=== PATIENT | male | born 1990 | race Caucasian/White ===

== ENCOUNTER 2017-07-05 20:54 | Emergency (ER) | payer BC, OTHER ==
[~2017-07-05] VITALS: Ht 180.3 cm; Wt 84.0 kg
[~2017-07-05 20:54] MED LIST: AFRI0.65; AMOX500C OR; CEPH500C PO; MEDR8TAB PO; METH16TA PO; MUCINEX PO; PAIN325T PO
[2017-07-05] MEDS ORDERED: NORCO, ANEXSIA 5/325MG TABLET (HYDROcodone/ACETAMINOPHEN) PO ONE (21:30)
[2017-07-05] MEDS ORDERED: NAPR500T PO (22:25)
[2017-07-05 22:36] VITALS: BP 139/84
--- NOTE | 2017-07-06 09:03 | REP ---
LEFT ANKLE, FOUR VIEWS: HISTORY: Trauma. There is no acute fracture or dislocation. The joint space is normal in appearance. Soft tissue swelling is present. IMPRESSION: There is no acute fracture or dislocation. Signed by Dandre Gramajo MD 07/06/2017 09:06 A
== END 2017-07-05 22:38 | disposition home or self-care (01) ==
LOC: M ED 20:54
DX: S93.412A Sprain of calcaneofibular ligament of left ankle, initial encounter (principal); X50.1XXA Overexertion from prolonged static or awkward postures, initial encounter; Y92.098 Other place in other non-institutional residence as the place of occurrence of the external cause; Y93.9 Activity, unspecified; Y99.9 Unspecified external cause status; Z88.2 Allergy status to sulfonamides

== ENCOUNTER → 2018-07-31 | Outpatient (REF) | payer OTHER | LOC: M SFHCLERA 20:03 | DX: J02.9 Acute pharyngitis, unspecified (principal) ==

== ENCOUNTER → 2018-10-23 | Outpatient (CLI) | payer BC, OTHER ==
[~2018-10-23] MED LIST changes: +NAPR-49 PO; +PROHANCE 279.3MG/ML 15ML VIAL (A9576) As Ordered ONE; +PROHANCE 279.3MG/ML 5ML VIAL (A9576) As Ordered ONE
--- NOTE | 2018-10-25 12:35 | REP ---
REASON FOR EXAM: Instability. PRIORS: None. GADOLINIUM UTILIZED: 17 mL of ProHance. The acromioclavicular joint is within normal limits. The acromion process is type I. There is minimal patchy T2 hypersignal seen in the supraspinatus tendon without evidence of supraspinatus muscle belly atrophy or retraction. Normal appearing low signal is seen throughout the subscapularis, infraspinatus, and teres minor tendons. The biceps tendon resides within the bicipital groove. There is no glenohumeral joint effusion. There is a small amount of fluid in the subcoracoid recess. The chondral surfaces are smooth. There is no evidence of abnormal coracohumeral or coracoacromial ligamentous thickening. There is no abnormal enhancement. IMPRESSION: 1. There is slight supraspinatus tendinitis/tendinopathy. 2. There is a small amount of fluid in the subcoracoid recess. 3. If a labral tear is of clinical concern, then I would recommend followup with shoulder MR arthrography. There are some very slight linear labral signal changes but seen only on the T2 weighted images and particularly in the axial plane. This finding alone cannot confirm a labral tear. 4. Other findings as described above. Electronically Signed by Julio Houston DO 10/25/2018 12:37 P
== END ==
LOC: M RAD 17:08
PROVIDERS: ATTEND Orthopaedic Surgery Sports Medicine
DX: M25.311 Other instability, right shoulder (principal)
CPT/HCPCS: 73223; A9576

== ENCOUNTER → 2021-06-21 | Outpatient (CLI) | payer BC, OTHER ==
[~2021-06-21] MED LIST changes: -NAPR-49 PO; +NAPR-837 PO; -PROHANCE 279.3MG/ML 15ML VIAL (A9576) As Ordered ONE; -PROHANCE 279.3MG/ML 5ML VIAL (A9576) As Ordered ONE
[2021-06-21 12:17] LABS: BASO # 0.1 10^3/uL (0.0-0.2); BASO % 0.8 % (0.0-1.0); EOS # 0.2 10^3/uL (0.0-0.5); EOS % 2.1 % (0.0-3.0); HEMATOCRIT 42.2 % (42.0-52.0); HEMOGLOBIN 14.6 g/dl (13.5-17.5); LYMPH # 2.1 10^3/uL (1.5-5.0); LYMPH % 30.3 % (24.0-44.0); MEAN CORPUSCULAR HEMOGLOBIN 29.4 pg (27.0-33.0); MEAN CORPUSCULAR HGB CONC 34.6 g/dl (32.0-36.5); MEAN CORPUSCULAR VOLUME 84.9 fl (80.0-96.0); MONO # 0.6 10^3/uL (0.0-0.8); MONO % 8.2 % (2.0-8.0); NEUTROPHILS # 4.1 10^3/uL (1.5-8.5); PLATELET COUNT, AUTOMATED 164 10^3/uL (150-450); RED BLOOD COUNT 4.97 10^6/uL (4.30-6.10); WHITE BLOOD COUNT 7.1 10^3/uL (4.0-10.0)
[2021-06-21 12:51] LABS: ALT/SGPT 44 U/L (12-78); BILIRUBIN,TOTAL 0.8 MG/DL (0.2-1.0); BLOOD UREA NITROGEN 15 MG/DL (7-18); CALCIUM LEVEL 8.7 MG/DL (8.5-10.1); CARBON DIOXIDE LEVEL 28 MEQ/L (21-32); CHLORIDE LEVEL 108 MEQ/L (98-107); CHOLESTEROL LEVEL 234 MG/DL (<200); CREATININE FOR GFR 0.71 MG/DL (0.70-1.30); GLOMERULAR FILTRATION RATE > 60.0 (>60); GLUCOSE, FASTING 85 MG/DL (70-100); HDL CHOLESTEROL 55 MG/DL (>40); POTASSIUM SERUM 4.2 MEQ/L (3.5-5.1); SODIUM LEVEL 141 MEQ/L (136-145); TRIGLYCERIDES LEVEL 87 MG/DL (<150)
[2021-06-21 12:52] LABS: ALBUMIN 4.2 GM/DL (3.2-5.2); CHOLESTEROL RISK RATIO 4.254 (<5); FREE T4 0.86 NG/DL (0.76-1.46); LDL CHOLESTEROL 162 MG/DL (<100); NON-HDL-C 179 MG/DL; TOTAL PROTEIN 7.1 GM/DL (6.4-8.2)
[2021-06-21 13:09] LABS: HEMOGLOBIN A1c 4.9 %
[2021-06-21 14:38] LABS: TOTAL 25(OH) VITAMIN D 31.8 NG/ML (30.0-100.0)
== END ==
LOC: M WUC 10:04
PROVIDERS: ATTEND Physician Assistant
DX: Z13.220 Encounter for screening for lipoid disorders (principal); Z13.29 Encounter for screening for other suspected endocrine disorder

== ENCOUNTER → 2021-07-31 | Outpatient (REF) | payer OTHER | LOC: M LAB REF 18:34 | PROVIDERS: ATTEND Family Medicine | DX: J01.90 Acute sinusitis, unspecified (principal) ==

== ENCOUNTER 2021-09-01 12:22 | Emergency (ER) | payer OTHER ==
[~2021-09-01] VITALS: Ht 180.3 cm; Wt 88.6 kg
--- OUTSIDE RECORDS SUMMARY | 2021-09-01 12:27 | CCD | Continuity of Care Document ---
Author Author Stephan TOVAR D.O. Organization Unknown Address [address] [place] [address] Phone [phone] Care Team Providers Care Field Artillery Targeting Technician Name Role Phone Brooklynn Tovar D.O. AUTM [phone] Problems Description No Information Available Social History Type Date Description Comments Sex Unknown ETOH Use Denies alcohol use Tobacco Use Start: Unknown Patient has never smoked Recreational Drug Use Denies Drug Use Smoking Status Reviewed: 07/23/21 Patient has never smoked Exercise Type/Frequency Does not exercise Sun Exposure Does not use sunscreen Seat Belt/Car Seat Always uses seat belt Allergies, Adverse Reactions, Alerts Active Allergies Criticality Reaction | Severity Comments Date Sulfa Antibiotics Unable to assess criticality Hives 11/17/2018 Honey Bee Venom Unable to assess criticality 06/13/2021 Medications Active Medications SIG Qnty Indications Ordering Provide r Date Amoxicillin/Clavulanate Potassium 875-125mg Tablets 1 by mouth twice a day x 10 days 20tabs H66.91 Brooklynn Tovar D.O. 07/31/2021 Crestor 10mg Tablets 1 by mouth every day 90tabs Brooklynn Tovar D.O. 06/26/2021 Immunizations Description No Information Available Vital Signs Date Vital Result Comment 07/31/2021 4:23pm BP Systolic 124 mmHg BP Diastolic 74 mmHg Height 69.4 inches 5'9.40" Heart Rate 94 /min Respiratory Rate 18 /min Body Temperature 100.5 F O2 % BldC Oximetry 96 % [place] Body Weight 160 lb 07/23/2021 4:01pm BP Systolic 124 mmHg BP Diastolic 68 mmHg Height 69.4 inches 5'9.40" Heart Rate 69 /min Respiratory Rate 18 /min Body Temperature 96.9 F O2 % BldC Oximetry 97 % [place] Body Weight 160 lb Results Test Acquired Date Facility Test Result H/L Range Note Respiratory Panel 07/31/[address] [facility] [address] [address] [place] [address] [phone] Respiratory Panel This respiratory <SEE NOTE> 1 CBC With Differential 06/21/[address] [address] [phone] White Blood Count 7.1 10 Normal 4.0-10.0 Red Blood Count 4.97 10 Normal 4.30-6.10 Hemoglobin 14.6 g/dL Normal 13.5-17.5 Hematocrit 42.2 % Normal 42.0-52.0 Mean Corpuscular Volume 84.9 fl Normal 80.0-96.0 Mean Corpuscular Hemoglobin 29.4 pg Normal 27.0-33.0 Mean Corpuscular HGB Conc 34.6 g/dL Normal 32.0-36.5 Red Cell Distribution Width 12.6 % Normal 11.5-14.5 Platelet Count, Automated 164 10 Normal 150-450 Neutrophils % 58.0 % Normal 36.0-66.0 Lymph % 30.3 % Normal 24.0-44.0 [place] % 8.2 % High 2.0-8.0 Eos % 2.1 % Normal 0.0-3.0 Baso % 0.8 % Normal 0.0-1.0 Immature Granulocyte % 0.6 % Normal 0-3.0 Nucleated Red Blood Cell % 0.0 % Normal 0-0 Neutrophils # 4.1 10 Normal 1.5-8.5 Lymph # 2.1 10 Normal 1.5-5.0 [place] # 0.6 10 Normal 0.0-0.8 Eos # 0.2 10 Normal 0.0-0.5 Baso # 0.1 10 Normal 0.0-0.2 Comprehensive Metabolic Profil 06/21/[address] [address] [phone] Glucose, Fasting 85 mg/dL Normal 70-100 Blood Urea Nitrogen 15 mg/dL Normal 7-18 Creatinine For GFR 0.71 mg/dL Normal 0.70-1.30 Glomerular Filtration Rate > 60.0 Normal >60 2 Sodium Level 141 mEq/L Normal 136-145 Potassium Serum 4.2 mEq/L Normal 3.5-5.1 Chloride Level 108 mEq/L High 98-107 Carbon Dioxide Level 28 mEq/L Normal 21-32 Anion Gap 5 mEq/L Low 8-16 Calcium Level 8.7 mg/dL Normal 8.5-10.1 Ast/Sgot 22 U/L Normal 7-37 Alt/SGPT 44 U/L Normal 12-78 Alkaline Phosphatase 62 U/L Normal 45-117 Bilirubin,Total 0.8 mg/dL Normal 0.2-1.0 Total Protein 7.1 GM/DL Normal 6.4-8.2 Albumin 4.2 GM/DL Normal 3.2-5.2 Albumin/Globulin Ratio 1.4 Normal Lipid Panel 06/21/[address] [address] [phone] Triglycerides Level 87 mg/dL Normal <150 Cholesterol Level 234 mg/dL High <200 HDL Cholesterol 55 mg/dL Normal >40 LDL Cholesterol 162 mg/dL High <100 Non-HDL-C 179 mg/dL Normal Cholesterol Risk Ratio 4.254 Normal <5 FT4&TSH Panel 06/21/[address] [address] [phone] Thyroid Stimulating Hormone 1.400 uIU/ML Normal 0. 358-3.740 Free T4 0.86 ng/dL Normal 0.76-1.46 Hemoglobin A1c 06/21/[address] [address] [phone] Hemoglobin A1c 4.9 % Normal 3 Estimated Average Glucose 94 mg/dL Normal 60-110 Laboratory test finding 06/21/[address] [address] [phone] Total 25(Oh) Vitamin D 31.8 NG/ML Normal 30.0-100. 0 1 This respiratory PCR panel d etects Influenza A H1, H3 and 2009 H1 viruses, Influenza B virus, Resp iratory Syncytial Virus, Human metapneumovirus, Parainfluenza virus 1, 2, 3 and 4, Adenovirus, Rhinovirus/Enterovirus, Coronavirus HKU1, NL63, OC43, 229E and SARS-CoV-2 (COVID 19), Bordetella pertussis, Bordetella parapertussis, Mycoplasma pneumoniae and Chlamydia pneumoniae. POSITIVE by MULTIPLEXED NUCLEIC ACID PCR SARS-CoV-2 (COVID 19) NEGATIVE - SARS-CoV-2 (COVID19) ORGANISM 1: RESPIRATORY SYNCYTIAL VIRUS RSV is the most common cause of severe respiratory disease in infants, with acute bronchiolitis as the major cause of hospitalization. Treatment or prophlaxis with a humanized monoclonal antibody has shown a reduction in disease for high risk infants. ORGANISM 1: RESPIRATORY SYNCYTIAL VIRUS 2 Units are mL/min/1.73 m2 Chronic Kidney Disease Staging per NKF: Stage I & II GFR >=60 Normal to Mildly Decreased Stage III GFR 30-59 Moderately Decreased Stage IV GFR 15-29 Severely Decreased Stage V GFR <15 Very Little GFR Left ESRD GFR <15 on AIRFIELD DEFENCE GUARD 3 REFERENCE RANGES: <=5.6% NORMAL 5.7-6.4% SUGGESTS IMPAIRED GLUCOSE META BOLISM/PREDIABETIC >= 6.5% ABNORMAL Procedures Date Code Description Status 07/31/2021 92563 Office/Outpatient Established Lo w MDM 20-29 Min Completed 07/23/2021 16149 Office/Outpatient Established Lo w MDM 20-29 Min Completed 06/13/2021 01558 Office/Outpatient New Low MDM 30 -44 Minutes Completed Medical Devices Description No Information Available Encounters Type Date Location Provider Dx Diagnosis Office Visit 07/31/2021 4:20p [facility] Brooklynn Tovar D.O. H66.91 Otitis media, unspecified, r ight ear J01.90 Acute sinusitis, unspecified Office Visit 07/23/2021 4:00p 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 07/31/2021 J01.90 Acute sinusitis, unspecified Jimena Tovar D.O. 07/23/2021 J06.9 Acute upper respiratory infectio n, unspecified KATARZYNA Salas 06/13/2021 D17.20 Benign lipomatous ne oplasm of skin and subcutaneous tissue of unspecified limb KATARZYNA Tran 06/13/2021 F51.5 Nightmare disorder KATARZYNA Dominguez 06/13/2021 Z13.220 Encounter for screening for lipo id disorders KATARZYNA Tran 06/13/2021 Z13.29 Encounter for screen ing for other suspected endocrine disorder KATARZYNA Tran Plan of Treatment Future Appointment(s):* 09/21/2021 9:00 am - KATARZYNA Tran at [facility] * 06/14/2022 11:00 am - KATARZYNA Tran at [facility] Functional Status Description No Information Available Mental Status Description No Information Available Referrals Description No Information Available
--- OUTSIDE RECORDS SUMMARY | 2021-09-01 12:27 | CCD ---
Continuity of Care Document (CCD) Created on: 07/23/2021 Kev Stephan External Reference #: [id number] : 1990 Sex: Male Author Author Stephan BARRERA [place] Organization Unknown Address [address] [place] [address] [address] [place] [address] Phone [phone] Care Team Providers Care Mill House Supervisor Name Role Phone Brooklynn Tovar D.O. AUTM [phone] Problems Description No Information Available Social History [...] SIG Qnty Indications Ordering Provide r Date Crestor 10mg Tablets 1 by mouth every day 90tabs Brooklynn Tovar DVikas 06/26/2021 Immunizations Description No Information Available Vital Signs Date Vital Result Comment 07/23/2021 4:01pm BP Systolic 124 mmHg BP Diastolic 68 mmHg Height 69.4 inches 5'9.40" Heart Rate 69 /min Respiratory Rate 18 /min Body Temperature 96.9 F O2 % BldC Oximetry 97 % [place] Body Weight 160 lb 06/13/2021 1:59pm BP Systolic 134 mmHg BP Diastolic 74 mmHg Height 69.4 inches 5'9.40" Weight 198.00 lb BMI (Body Mass Index) 28.9 kg/m2 Heart Rate 95 /min Respiratory Rate 18 /min Body Temperature 97.5 F O2 % BldC Oximetry 96 % [place] Body Weight 160 lb Results Test Acquired Date Facility Test Result H/L Range Note CBC With Differential 06/21/[address] [address] [phone] White Blood Count 7.1 10 Normal 4.0-10.0 [...] 36.0-66.0 Lymph % 30.3 % Normal 24.0-44.0 [place] % 8.2 % High 2.0-8.0 Eos % 2.1 % Normal 0.0-3.0 Baso % 0.8 % Normal 0.0-1.0 Immature Granulocyte % 0.6 % Normal 0-3.0 Nucleated Red Blood Cell % 0.0 % Normal 0-0 Neutrophils # 4.1 10 Normal 1.5-8.5 Lymph # 2.1 10 Normal 1.5-5.0 [place] # 0.6 10 Normal 0.0-0.8 Eos # 0.2 10 Normal 0.0-0.5 Baso # 0.1 10 Normal 0.0-0.2 Comprehensive Metabolic Profil 06/21/[address] [address] [phone] Glucose, Fasting 85 mg/dL Normal 70-100 Blood Urea Nitrogen 15 mg/dL Normal 7-18 Creatinine For GFR 0.71 mg/dL Normal 0.70-1.30 Glomerular Filtration Rate > 60.0 Normal >60 1 Sodium Level 141 mEq/L Normal 136-145 Potassium [...] Albumin/Globulin Ratio 1.4 Normal Lipid Panel 06/21/[address] [address] [phone] Triglycerides Level 87 mg/dL Normal <150 Cholesterol Level 234 mg/dL High <200 HDL Cholesterol 55 mg/dL Normal >40 LDL Cholesterol 162 mg/dL High <100 Non-HDL-C 179 mg/dL Normal Cholesterol Risk Ratio 4.254 Normal <5 FT4&TSH Panel 06/21/[address] [address] [phone] Thyroid Stimulating Hormone 1.400 uIU/ML Normal 0. 358-3.740 Free T4 0.86 ng/dL Normal 0.76-1.46 Hemoglobin A1c 06/21/[address] [address] [phone] Hemoglobin A1c 4.9 % Normal 2 Estimated Average Glucose 94 mg/dL Normal 60-110 Laboratory test finding 06/21/[address] [address] [phone] Total 25(Oh) Vitamin D 31.8 NG/ML Normal 30.0-100. 0 1 Units are mL/min/1.73 m2 Chronic Kidney Disease Staging per NKF: Stage I & II GFR >=60 Normal to Mildly Decreased Stage III GFR 30-59 Moderately Decreased Stage IV GFR 15-29 Severely Decreased Stage V GFR <15 Very Little GFR Left ESRD GFR <15 on GYMNASIUM TEACHER 2 REFERENCE RANGES: <=5.6% NORMAL 5.7-6.4% SUGGESTS IMPAIRED GLUCOSE META BOLISM/PREDIABETIC >= 6.5% ABNORMAL Procedures Date Code Description Status 07/23/2021 78587 Office/Outpatient Established w MDM 20-29 Min Completed 06/13/2021 526[address] Office/Outpatient New Low MDM 30 -44 Minutes Completed Medical Devices Description No Information Available Encounters Type Date Location Provider Dx Diagnosis Office Visit 07/23/2021 4:00p [facility] KATARZYNA Salas J06.9 Acute upper respiratory infe ction, unspecified Office Visit 06/13/2021 2:00p 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 Z13.220 Encounter for screening for lipoid disorders Z13.29 Encounter for screening for oth suspected endocrine disorder Assessments Date Code Description Provider 07/23/2021 J06.9 Acute upper respiratory infectio n, unspecified KATARZYNA Salas 06/13/2021 D17.20 Benign lipomatous ne oplasm of skin and subcutaneous tissue of unspecified limb KATARZYNA Tran 06/13/2021 F51.5 Nightmare disorder KATARZYNA Domingeuz 06/13/2021 Z13.220 Encounter for screening for lipo id disorders KATARZYNA Tran 06/13/2021 Z13.29 Encounter for screen ing for other suspected endocrine disorder KATARZYNA Tran Plan of Treatment Future Appointment(s):* 09/21/2021 9:00 am - KATARZYNA Tran at [facility] * 06/14/2022 11:00 am - KATARZYNA Tran at [facility] Functional Status Description No Information Available Mental Status Description No Information Available Referrals Description No Information Available
--- OUTSIDE RECORDS SUMMARY | 2021-09-01 12:27 | CCD | Continuity of Care Document ---
Author Author Stephan BARRERA [place] Organization Unknown Address [address] [place] [address] [address] [place] [address] Phone [phone] Care Team Providers Care Joint Supervisor Name Role Phone Brooklynn Tovar D.O. AUTM [phone] Problems Description No Information Available Social History [...] F O2 % BldC Oximetry 97 % [place] Body Weight 160 lb 06/13/2021 1:59pm BP Systolic 134 mmHg BP Diastolic 74 mmHg Height 69.4 inches 5'9.40" Weight 198.00 lb BMI (Body Mass Index) 28.9 kg/m2 Heart Rate 95 /min Respiratory Rate 18 /min Body Temperature 97.5 F O2 % BldC Oximetry 96 % [place] Body Weight 160 lb Results Test Acquired Date Facility Test Result H/L Range Note CBC With Differential 06/21/[address] [address] [phone] White Blood Count 7.1 10 Normal 4.0-10.0 [...] 36.0-66.0 Lymph % 30.3 % Normal 24.0-44.0 [place] % 8.2 % High 2.0-8.0 Eos % 2.1 % Normal 0.0-3.0 Baso % 0.8 % Normal 0.0-1.0 Immature Granulocyte % 0.6 % Normal 0-3.0 Nucleated Red Blood Cell % 0.0 % Normal 0-0 Neutrophils # 4.1 10 Normal 1.5-8.5 Lymph # 2.1 10 Normal 1.5-5.0 [place] # 0.6 10 Normal 0.0-0.8 Eos # 0.2 10 Normal 0.0-0.5 Baso # 0.1 10 Normal 0.0-0.2 Comprehensive Metabolic Profil 06/21/[address] [address] [phone] Glucose, Fasting 85 mg/dL Normal 70-100 Blood [...] Albumin/Globulin Ratio 1.4 Normal Lipid Panel 06/21/[address] [address] [phone] Triglycerides Level 87 mg/dL Normal <150 Cholesterol Level 234 mg/dL High <200 HDL Cholesterol 55 mg/dL Normal >40 LDL Cholesterol 162 mg/dL High <100 Non-HDL-C 179 mg/dL Normal Cholesterol Risk Ratio 4.254 Normal <5 FT4&TSH Panel 06/21/[address] [address] [phone] Thyroid Stimulating Hormone 1.400 uIU/ML Normal 0. 358-3.740 Free T4 0.86 ng/dL Normal 0.76-1.46 Hemoglobin A1c 06/21/[address] [address] [phone] Hemoglobin A1c 4.9 % Normal 2 Estimated Average Glucose 94 mg/dL Normal 60-110 Laboratory test finding 06/21/[address] [address] [phone] Total 25(Oh) Vitamin D 31.8 NG/ML Normal 30.0-100. 0 1 Units are mL/min/1.73 m2 Chronic Kidney Disease Staging per NKF: Stage I & II GFR >=60 Normal to Mildly Decreased Stage III GFR 30-59 Moderately Decreased Stage IV GFR 15-29 Severely Decreased Stage V GFR <15 Very Little GFR Left ESRD GFR <15 on BODY SHOP MECHANIC 2 REFERENCE RANGES: <=5.6% NORMAL 5.7-6.4% SUGGESTS IMPAIRED GLUCOSE META BOLISM/PREDIABETIC >= 6.5% ABNORMAL Procedures Date Code Description Status 07/23/2021 20137 Office/Outpatient Established w MDM 20-29 Min Completed 06/13/2021 35059 Office/Outpatient New Low MDM 30 -44 Minutes Completed Medical Devices Description No Information Available Encounters Type Date Location Provider Dx Diagnosis Office Visit 07/23/2021 4:00p [facility] KATARZYNA Salas J06.9 Acute upper respiratory infe ction, unspecified Office Visit 06/13/2021 2:00p [facility] KATARZYNA Tran D17.20 Benign lipomatous neoplasm o [...] 09/21/2021 9:00 am - KATARZYNA Tran at [facility] * 06/14/2022 11:00 am - KATARZYNA Tran at [facility] Functional Status Description No Information Available Mental Status Description No Information Available Referrals Description No Information Available
--- OUTSIDE RECORDS SUMMARY | 2021-09-01 12:27 | CCD | Continuity of Care Document ---
Author Author Stephan TOVAR D.O. Organization Unknown Address [address] [place] [address] Phone [phone] Care Team Providers Care Building Drafting Officer Name Role Phone Brooklynn Tovar D.O. AUTM [phone] Problems Description No Information Available Social [...] F O2 % BldC Oximetry 96 % [place] Body Weight 160 lb 07/23/2021 4:01pm BP Systolic 124 mmHg BP Diastolic 68 mmHg Height 69.4 inches 5'9.40" Heart Rate 69 /min Respiratory Rate 18 /min Body Temperature 96.9 F O2 % BldC Oximetry 97 % [place] Body Weight 160 lb Results Test Acquired Date Facility Test Result H/L Range Note Respiratory Panel 07/31/2021 [facility] nter [address] [place] [address] [phone] Respiratory Panel This respiratory <SEE NOTE> 1 CBC With Differential 06/21/[address] [address] [phone] White Blood Count 7.1 10 Normal 4.0-10.0 [...] 36.0-66.0 Lymph % 30.3 % Normal 24.0-44.0 [place] % 8.2 % High 2.0-8.0 Eos % 2.1 % Normal 0.0-3.0 Baso % 0.8 % Normal 0.0-1.0 Immature Granulocyte % 0.6 % Normal 0-3.0 Nucleated Red Blood Cell % 0.0 % Normal 0-0 Neutrophils # 4.1 10 Normal 1.5-8.5 Lymph # 2.1 10 Normal 1.5-5.0 [place] # 0.6 10 Normal 0.0-0.8 Eos # 0.2 10 Normal 0.0-0.5 Baso # 0.1 10 Normal 0.0-0.2 Comprehensive Metabolic Profil 06/21/[address] [address] [phone] Glucose, Fasting 85 mg/dL Normal 70-100 Blood [...] Albumin/Globulin Ratio 1.4 Normal Lipid Panel 06/21/[address] [address] [phone] Triglycerides Level 87 mg/dL Normal <150 Cholesterol Level 234 mg/dL High <200 HDL Cholesterol 55 mg/dL Normal >40 LDL Cholesterol 162 mg/dL High <100 Non-HDL-C 179 mg/dL Normal Cholesterol Risk Ratio 4.254 Normal <5 FT4&TSH Panel 06/21/[address] [address] [phone] Thyroid Stimulating Hormone 1.400 uIU/ML Normal 0. 358-3.740 Free T4 0.86 ng/dL Normal 0.76-1.46 Hemoglobin A1c 06/21/[address] [address] [phone] Hemoglobin A1c 4.9 % Normal 3 Estimated Average Glucose 94 mg/dL Normal 60-110 Laboratory test finding 06/21/[address] [address] [phone] Total 25(Oh) Vitamin D 31.8 NG/ML Normal [...] Little GFR Left ESRD GFR <15 on DIGITAL MUSIC INSTRUCTOR 3 REFERENCE RANGES: <=5.6% NORMAL 5.7-6.4% SUGGESTS IMPAIRED GLUCOSE META BOLISM/PREDIABETIC >= 6.5% ABNORMAL Procedures Date Code Description Status 07/31/2021 17593 Office/Outpatient Established Lo w MDM 20-29 Min Completed 07/23/2021 74369 Office/Outpatient Established Lo w MDM 20-29 Min Completed 06/13/2021 429[address] Office/Outpatient New Low MDM 30 -44 Minutes Completed Medical Devices Description No Information Available Encounters Type Date Location Provider Dx Diagnosis Office Visit 07/31/2021 4:20p [facility] Brooklynn Tovar D.O. H66.91 Otitis media, unspecified, r ight ear J01.90 Acute sinusitis, unspecified Office Visit 07/23/2021 4:00p [facility] KATARZYNA Salas J06.9 Acute upper respiratory infe ction, unspecified Office Visit 06/13/2021 2:00p [facility] KATARZYNA Tran D17.20 Benign lipomatous neoplasm o [...] 09/21/2021 9:00 am - KATARZYNA Tran at [facility] * 06/14/2022 11:00 am - KATARZYNA Tran at [facility] Functional Status Description No Information Available Mental Status Description No Information Available Referrals Description No Information Available
--- OUTSIDE RECORDS SUMMARY | 2021-09-01 12:27 | CCD | Continuity of Care Document ---
Author Author Stephan TOVAR D.O. Organization Unknown Address [address] [employer] [employer] [address] [place] [address] Phone [phone] Care Team Providers Care Financial Sales Assistant Name Role Phone Brooklynn Tovar D.O. AUTM [phone] Problems Description No Information Available Social [...] F O2 % BldC Oximetry 96 % [place] Body Weight 160 lb 07/23/2021 4:01pm BP Systolic 124 mmHg BP Diastolic 68 mmHg Height 69.4 inches 5'9.40" Heart Rate 69 /min Respiratory Rate 18 /min Body Temperature 96.9 F O2 % BldC Oximetry 97 % [place] Body Weight 160 lb Results Test Acquired Date Facility Test Result H/L Range Note CBC With Differential 06/21/[address] [address] [phone] White Blood Count 7.1 10 Normal 4.0-10.0 [...] 36.0-66.0 Lymph % 30.3 % Normal 24.0-44.0 [place] % 8.2 % High 2.0-8.0 Eos % 2.1 % Normal 0.0-3.0 Baso % 0.8 % Normal 0.0-1.0 Immature Granulocyte % 0.6 % Normal 0-3.0 Nucleated Red Blood Cell % 0.0 % Normal 0-0 Neutrophils # 4.1 10 Normal 1.5-8.5 Lymph # 2.1 10 Normal 1.5-5.0 [place] # 0.6 10 Normal 0.0-0.8 Eos # 0.2 10 Normal 0.0-0.5 Baso # 0.1 10 Normal 0.0-0.2 Comprehensive Metabolic Profil 06/21/[address] [address] [phone] Glucose, Fasting 85 mg/dL Normal 70-100 Blood [...] Albumin/Globulin Ratio 1.4 Normal Lipid Panel 06/21/[address] [address] [phone] Triglycerides Level 87 mg/dL Normal <150 Cholesterol Level 234 mg/dL High <200 HDL Cholesterol 55 mg/dL Normal >40 LDL Cholesterol 162 mg/dL High <100 Non-HDL-C 179 mg/dL Normal Cholesterol Risk Ratio 4.254 Normal <5 FT4&TSH Panel 06/21/[address] [address] [phone] Thyroid Stimulating Hormone 1.400 uIU/ML Normal 0. 358-3.740 Free T4 0.86 ng/dL Normal 0.76-1.46 Hemoglobin A1c 06/21/[address] [address] [phone] Hemoglobin A1c 4.9 % Normal 2 Estimated Average Glucose 94 mg/dL Normal 60-110 Laboratory test finding 06/21/[address] [address] [phone] Total 25(Oh) Vitamin D 31.8 NG/ML Normal 30.0-100. 0 1 Units are mL/min/1.73 m2 Chronic Kidney Disease Staging per NKF: Stage I & II GFR >=60 Normal to Mildly Decreased Stage III GFR 30-59 Moderately Decreased Stage IV GFR 15-29 Severely Decreased Stage V GFR <15 Very Little GFR Left ESRD GFR <15 on [employer]IAN 2 REFERENCE RANGES: <=5.6% NORMAL 5.7-6.4% SUGGESTS IMPAIRED GLUCOSE META BOLISM/PREDIABETIC >= 6.5% ABNORMAL Procedures Date Code Description Status 07/31/2021 47092 Office/Outpatient Established Lo w MDM 20-29 Min Completed 07/23/2021 80982 Office/Outpatient Established Lo w MDM 20-29 Min Completed 06/13/2021 92758 Office/Outpatient [facility] 30 -44 Minutes Completed Medical Devices Description No Information Available Encounters Type Date Location Provider Dx Diagnosis Office Visit 07/31/2021 4:20p [facility] Brooklynn Tovar D.O. 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 Z13.220 Encounter for screening for lipoid disorders Z13.29 Encounter for screening for oth suspected endocrine disorder Assessments Date Code Description Provider 07/31/2021 H66.91 Otitis media, unspecified, right ear Ofelia ShawOSandra 07/31/2021 J01.90 Acute sinusitis, unspecified Ofelia MedleyOSandra 07/23/2021 J06.9 Acute upper respiratory infectio n, [...] am - KATARZYNA Tran at [facility] * 06/14/2022 11:00 am - KATARZYNA Tran at [facility] Functional Status Description No Information Available Mental Status Description No Information Available Referrals Description No Information Available
--- OUTSIDE RECORDS SUMMARY | 2021-09-01 12:27 | CCD | Continuity of Care Document ---
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 AUTM [phone] Problems Description No Information Available Social History [...] F O2 % BldC Oximetry 97 % [place] Body Weight 160 lb 06/13/2021 1:59pm BP Systolic 134 mmHg BP Diastolic 74 mmHg Height 69.4 inches 5'9.40" Weight 198.00 lb BMI (Body Mass Index) 28.9 kg/m2 Heart Rate 95 /min Respiratory Rate 18 /min Body Temperature 97.5 F O2 % BldC Oximetry 96 % [place] Body Weight 160 lb Results Test Acquired Date Facility Test Result H/L Range Note CBC With Differential 06/21/[address] [address] [phone] White Blood Count 7.1 10 Normal 4.0-10.0 [...] 36.0-66.0 Lymph % 30.3 % Normal 24.0-44.0 [place] % 8.2 % High 2.0-8.0 Eos % 2.1 % Normal 0.0-3.0 Baso % 0.8 % Normal 0.0-1.0 Immature Granulocyte % 0.6 % Normal 0-3.0 Nucleated Red Blood Cell % 0.0 % Normal 0-0 Neutrophils # 4.1 10 Normal 1.5-8.5 Lymph # 2.1 10 Normal 1.5-5.0 [place] # 0.6 10 Normal 0.0-0.8 Eos # 0.2 10 Normal 0.0-0.5 Baso # 0.1 10 Normal 0.0-0.2 Comprehensive Metabolic Profil 06/21/[address] [address] [phone] Glucose, Fasting 85 mg/dL Normal 70-100 Blood [...] Albumin/Globulin Ratio 1.4 Normal Lipid Panel 06/21/[address] [address] [phone] Triglycerides Level 87 mg/dL Normal <150 Cholesterol Level 234 mg/dL High <200 HDL Cholesterol 55 mg/dL Normal >40 LDL Cholesterol 162 mg/dL High <100 Non-HDL-C 179 mg/dL Normal Cholesterol Risk Ratio 4.254 Normal <5 FT4&TSH Panel 06/21/[address] [address] [phone] Thyroid Stimulating Hormone 1.400 uIU/ML Normal 0. 358-3.740 Free T4 0.86 ng/dL Normal 0.76-1.46 Hemoglobin A1c 06/21/[address] [address] [phone] Hemoglobin A1c 4.9 % Normal 2 Estimated Average Glucose 94 mg/dL Normal 60-110 Laboratory test finding 06/21/[address] [address] [phone] Total 25(Oh) Vitamin D 31.8 NG/ML Normal 30.0-100. 0 1 Units are mL/min/1.73 m2 Chronic Kidney Disease Staging per NKF: Stage I & II GFR >=60 Normal to Mildly Decreased Stage III GFR 30-59 Moderately Decreased Stage IV GFR 15-29 Severely Decreased Stage V GFR <15 Very Little GFR Left ESRD GFR <15 on [employer] GR[employer]ER 2 REFERENCE RANGES: <=5.6% NORMAL 5.7-6.4% SUGGESTS IMPAIRED GLUCOSE META BOLISM/PREDIABETIC >= 6.5% ABNORMAL Procedures Date Code Description Status 07/23/2021 70842 Office/Outpatient Established w MDM 20-29 Min Completed 06/13/2021 75[address] Office/Outpatient New Low MDM 30 -44 Minutes Completed Medical Devices Description No Information Available Encounters Type Date Location Provider Dx Diagnosis Office Visit 07/23/2021 4:00p [facility] KATARZYNA Salas J06.9 Acute upper respiratory infe ction, unspecified Office Visit 06/13/2021 2:00p [facility] KATARZYNA Tran 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
--- OUTSIDE RECORDS SUMMARY | 2021-09-01 12:28 | CCD ---
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 Name Role Phone LUIS CARLOS, Fito COLÓN Unavailable Unavailable LETTIERE, Fito COLÓN Unavailable Unavailable LETTIERE, Fito COLÓN Unavailable Unavailable LETTIERE, Fito COLÓN Unavailable Unavailable LETTIERE, Fito COLÓN Unavailable Unavailable LETTIERE, Fito COLÓN Unavailable Unavailable LETTIERE, Fito COLÓN Unavailable Unavailable LETTIERE, Fito COLÓN Unavailable Unavailable LETTIERE, Fito COLÓN Unavailable Unavailable LETTIERE, Fito COLÓN Unavailable Unavailable LETTIERE, Fito COLÓN Unavailable Unavailable LETTIERE, Fito COLÓN Unavailable Unavailable LETTIERE, Fito COLÓN Unavailable Unavailable LETTIERE, Fito COLÓN Unavailable Unavailable LETTIERE, Fito COLÓN Unavailable Unavailable LETTIERE, Fito COLÓN Unavailable Unavailable LETTIERE, Fito COLÓN Unavailable Unavailable LETTIERE, A DAMARI PA Unavailable Unavailable LETTIERE, A DAMARI PA Unavailable Unavailable LETTIERE, A DAMARI PA Unavailable Unavailable LETTIERE, A DAMARI PA Unavailable Unavailable LETTIERE, A DAMARI PA Unavailable Unavailable LETTIERE, A DAMARI PA Unavailable Unavailable LETTIERE, A DAMARI PA Unavailable Unavailable LETTIERE, A DAMARI PA Unavailable Unavailable LETTIERE, A DAMARI PA Unavailable Unavailable LETTIERE, A DAMARI PA Unavailable Unavailable LETTIERE, A DAMARI PA Unavailable Unavailable LETTIERE, A DAMARI PA Unavailable Unavailable LETTIERE, A DAMARI PA Unavailable Unavailable LETTIERE, A DAMARI PA Unavailable Unavailable LORA-DANNY, DILMA DO Unavailable Unavailable LORA-DANNY, DILMA DO Unavailable Unavailable LORA-DANNY, DILMA DO Unavailable Unavailable LORA-DANNY, DILMA DO Unavailable Unavailable LORA-DANNY, DILMA DO Unavailable Unavailable LORA-DANNY, DILMA DO Unavailable Unavailable LORA-DANNY, DILMA DO Unavailable Unavailable LORA-DANNY, DILMA DO Unavailable Unavailable LORA-DANNY, DILMA DO Unavailable Unavailable LORA-DANNY, DILMA DO Unavailable Unavailable LORA-DANNY, DILMA DO Unavailable Unavailable LORA-DANNY, DILMA DO Unavailable Unavailable LORA-DANNY, DILMA DO Unavailable Unavailable LORA-DANNY, DILMA DO Unavailable Unavailable LORA-DANNY, DILMA DO Unavailable Unavailable LORA-DANNY, DILMA DO Unavailable Unavailable LORA-DANNY, DILMA DO Unavailable Unavailable LORA-DANNY, DILMA DO Unavailable Unavailable LORA-DANNY, DILMA DO Unavailable Unavailable LORA-DANNY, DILMA DO Unavailable Unavailable LORA-DANNY, DILMA DO Unavailable Unavailable LORA-DANNY, DILMA DO Unavailable Unavailable LORA-DANNY, DILMA DO Unavailable Unavailable LORA-DANNY, DILMA DO Unavailable Unavailable LORA-DANNY, DILMA DO Unavailable Unavailable LORA-DANNY, DILMA DO Unavailable Unavailable LORA-DANNY, DILMA DO Unavailable Unavailable LORA-DANNY, DILMA DO Unavailable Unavailable LORA-DANNY, DILMA DO Unavailable Unavailable LORA-DANNY, DILMA DO Unavailable Unavailable LORA-DANNY, DILMA DO Unavailable Unavailable LORA-DANNY, DILMA DO Unavailable Unavailable LORA-DANNY, DILMA DO Unavailable Unavailable LORA-DANNY, DILMA DO Unavailable Unavailable LORA-DANNY, DILMA DO Unavailable Unavailable LORA-DANNY, DILMA DO Unavailable Unavailable LORA-DANNY, DILMA DO Unavailable Unavailable LORA-DANNY, DILMA DO Unavailable Unavailable LORA-DANNY, DILMA DO Unavailable Unavailable LORA-DANNY, DILMA DO Unavailable Unavailable LORA-DANNY, DILMA DO Unavailable Unavailable LORA-DANNY, DILMA DO Unavailable Unavailable LORA-DANNY, DILMA DO Unavailable Unavailable LORA-DANNY, DILMA DO Unavailable Unavailable LORA-DANNY, DILMA DO Unavailable Unavailable LORA-DANNY, DILMA DO Unavailable Unavailable LORA-DANNY, DILMA DO Unavailable Unavailable LORA-DANNY, DILMA DO Unavailable Unavailable LORA-DANNY, DILMA DO Unavailable Unavailable LORA-DANNY, DILMA DO Unavailable Unavailable LORA-DANNY, DILMA DO Unavailable Unavailable LORA-DANNY, DILMA DO Unavailable Unavailable LORA-DANNY, DILMA DO Unavailable Unavailable LORA-DANNY, DILMA DO Unavailable Unavailable LORA-DANNY, DILMA DO Unavailable Unavailable LORA-DANNY, DILMA DO Unavailable Unavailable LORA-DANNY, DILMA DO Unavailable Unavailable LORA-DANNY, DILMA DO Unavailable Unavailable LORA-DANNY, DILMA DO Unavailable Unavailable LORA-DANNY, DILMA DO Unavailable Unavailable LORA-DANNY, DILMA DO Unavailable Unavailable LORA-DANNY, DILMA DO Unavailable Unavailable LORA-DANNY, DILMA DO Unavailable Unavailable LORA-DANNY, DILMA DO Unavailable Unavailable LORA-DANNY, DILMA DO Unavailable Unavailable LORA-DANNY, DILMA DO Unavailable Unavailable LORA-DANNY, DILMA DO Unavailable Unavailable LORA-DANNY, DILMA DO Unavailable Unavailable LORA-DANNY, DILMA DO Unavailable Unavailable LOAR-DANNY, DILMA DO Unavailable Unavailable LORA-DANNY, DILMA DO Unavailable Unavailable LORA-ADNNY, DILMA DO Unavailable Unavailable LORA-DANNY, DILMA DO Unavailable Unavailable LORA-DANNY, DILMA DO Unavailable Unavailable LORA-DANNY, DILMA DO Unavailable Unavailable LORA-DANNY, DILMA DO Unavailable Unavailable OLRA-DANNY, DILMA DO Unavailable Unavailable LORA-DANNY, DILMA DO Unavailable Unavailable LORA-DANNY, DILMA DO Unavailable Unavailable LORA-DANNY, DILMA DO Unavailable Unavailable LROA-DANNY, DILMA DO Unavailable Unavailable LORA-DANNY, DILMA DO Unavailable Unavailable LORA-DANNY, DILMA DO Unavailable Unavailable LORA-DANNY, DILMA DO Unavailable Unavailable En, Gurdeep PA Unavailable Unavailable En, Gurdeep PA Unavailable Unavailable En, Gurdeep PA Unavailable Unavailable En, Gurdeep PA Unavailable Unavailable En, Gurdeep PA Unavailable Unavailable En, Gurdeep PA Unavailable Unavailable En, Gurdeep PA Unavailable Unavailable En, Gurdeep PA Unavailable Unavailable En, Gurdeep PA Unavailable Unavailable En, Gurdeep PA Unavailable Unavailable En, Gurdeep PA Unavailable Unavailable En, Gurdeep PA Unavailable Unavailable En, Gurdeep PA Unavailable Unavailable En, Gurdeep PA Unavailable Unavailable En, Gurdeep PA Unavailable Unavailable En, Gurdeep PA Unavailable Unavailable En, Gurdeep PA Unavailable Unavailable En, Gurdeep PA Unavailable Unavailable En, Gurdeep PA Unavailable Unavailable En, Gurdeep PA Unavailable Unavailable En, Gurdeep PA Unavailable Unavailable En, Gurdeep PA Unavailable Unavailable En, Gurdeep PA Unavailable Unavailable En, Gurdeep PA Unavailable Unavailable En, Gurdeep PA Unavailable Unavailable En, Gurdeep PA Unavailable Unavailable En, Gurdeep PA Unavailable Unavailable En, Gurdeep PA Unavailable Unavailable En, Gurdeep PA Unavailable Unavailable En, Gurdeep PA Unavailable Unavailable En, Gurdeep PA Unavailable Unavailable En, Gurdeep PA Unavailable Unavailable En, Gurdeep PA Unavailable Unavailable En, Gurdeep PA Unavailable Unavailable En, Gurdeep PA Unavailable Unavailable En, Gurdeep PA Unavailable Unavailable En, Gurdeep PA Unavailable Unavailable En, Gurdeep PA Unavailable Unavailable En, Gurdeep PA Unavailable Unavailable En, Gurdeep PA Unavailable Unavailable En, Gurdeep PA Unavailable Unavailable En, Gurdeep PA Unavailable Unavailable En, Gurdeep PA Unavailable Unavailable En, Gurdeep PA Unavailable Unavailable En, Gurdeep PA Unavailable Unavailable Ne, Gurdeep PA Unavailable Unavailable En, Gurdeep PA Unavailable Unavailable En, Gurdeep PA Unavailable Unavailable En, Gurdeep PA Unavailable Unavailable En, Gurdeep PA Unavailable Unavailable En, Gurdeep PA Unavailable Unavailable En, Gurdeep PA Unavailable Unavailable En, Gurdeep PA Unavailable Unavailable En, Gurdeep PA Unavailable Unavailable PRADEEP, DIANE PA Unavailable Unavailable PRADEEP, DIANE PA Unavailable Unavailable PRADEEP, DIANE PA Unavailable Unavailable PRADEEP, DIANE PA Unavailable Unavailable PRADEEP, DIANE PA Unavailable Unavailable PRADEEP, DIANE PA Unavailable Unavailable PRADEEP, DIANE PA Unavailable Unavailable PRADEEP, DIANE PA Unavailable Unavailable PRADEEP, DIANE PA Unavailable Unavailable PRADEEP, DIANE PA Unavailable Unavailable PRADEEP, DIANE PA Unavailable Unavailable PRADEEP, DIANE PA Unavailable Unavailable PRADEEP, DIANE PA Unavailable Unavailable PRADEEP, DIANE PA Unavailable Unavailable PRADEEP, DIANE PA Unavailable Unavailable PRADEEP, DIANE PA Unavailable Unavailable PRADEEP, DIANE PA Unavailable Unavailable PRADEEP, DIANE PA Unavailable Unavailable PRADEEP, DIANE PA Unavailable Unavailable PRADEEP, DIANE PA Unavailable Unavailable PRADEEP, DIANE PA Unavailable Unavailable PRADEEP, DIANE PA Unavailable Unavailable PRADEEP, DIANE PA Unavailable Unavailable PRADEEP, DIANE PA Unavailable Unavailable PRADEEP, DIANE PA Unavailable Unavailable PRADEEP, DIANE PA Unavailable Unavailable PRADEEP, DIANE PA Unavailable Unavailable PRADEEP, DIANE PA Unavailable Unavailable PRADEEP, DIANE PA Unavailable Unavailable PRADEEP, DIANE PA Unavailable Unavailable PRADEEP, DIANE PA Unavailable Unavailable PRADEEP, DIANE PA Unavailable Unavailable PRADEEP, DIANE PA Unavailable Unavailable PRADEEP, DIANE PA Unavailable Unavailable PRADEEP, DIANE PA Unavailable Unavailable PRADEEP, DIANE PA Unavailable Unavailable O'maxim, A Damari PA Unavailable Unavailable O'maxim, A Damari PA Unavailable Unavailable O'maxim, A Damari PA Unavailable Unavailable O'maxim, A Damari PA Unavailable Unavailable O'maxim, A Damari PA Unavailable Unavailable O'maxim, A Damari PA Unavailable Unavailable O'maxim, A Damari PA Unavailable Unavailable O'maxim, A Damari PA Unavailable Unavailable O'maxim, A Damari PA Unavailable Unavailable O'maxim, A Damari PA Unavailable Unavailable O'maxim, A Damari PA Unavailable Unavailable O'maxim, A Damari PA Unavailable Unavailable O'maxim, A Damari PA Unavailable Unavailable O'maxim, A Damari PA Unavailable Unavailable O'maxim, A Damari PA Unavailable Unavailable O'maxim, A Damari PA Unavailable Unavailable O'maxim, A Damari PA Unavailable Unavailable O'maxim, A Damari PA Unavailable Unavailable O'maxim, A Damari PA Unavailable Unavailable O'maxim, A Damari PA Unavailable Unavailable O'maxim, A Damari PA Unavailable Unavailable O'maxim, A Damari PA Unavailable Unavailable O'maxim, A Damari PA Unavailable Unavailable O'maxim, A Damari PA Unavailable Unavailable O'maxim, A Damari PA Unavailable Unavailable O'maxim, A Damari PA Unavailable Unavailable O'maxim, A Damari PA Unavailable Unavailable O'maxim, A Damari PA Unavailable Unavailable O'maxim, A Damari PA Unavailable Unavailable O'maxim, A Damari PA Unavailable Unavailable O'maxim, A Damari PA Unavailable Unavailable O'maxim, A Damari PA Unavailable Unavailable O'maxim, A Damari PA Unavailable Unavailable Re-disclosure Warning The records that you are about to access may contain information from federally-assisted alcohol or drug abuse programs. If such information is present, then the following federally mandated warning applies: This information has been disclosed to you from records protected by federal confidentiality rules (42 CFR part 2). The federal rules prohibit you from making any further disclosure of this information unless further disclosure is expressly permitted by the written consent of the person to whom it pertains or as otherwise permitted by 42 CFR part 2. A general authorization for the release of medical or other information is NOT sufficient for this purpose. The Federal rules restrict any use of the information to criminally investigate or prosecute any alcohol or drug abuse patient.The records that you are about to access may contain highly sensitive health information, the redisclosure of which is protected by Article 27-F of the [facility] Public Health law. If you continue you may have access to information: Regarding HIV / AIDS; Provided by facilities licensed or operated by the [facility] Office of Mental Health; or Provided by the [facility] Office for People With Developmental Disabilities. If such information is present, then the following [facility] mandated warning applies: This information has been disclosed to you from confidential records which are protected by state law. State law prohibits you from making any further disclosure of this information without the specific written consent of the person to whom it pertains, or as otherwise permitted by law. Any unauthorized further disclosure in violation of state law may result in a fine or custodial sentence or both. A general authorization for the release of medical or other information is NOT sufficient authorization for further disc losure. Encounters Encounter Providers Location Date Indications Data Source(s ) Outpatient Attender: DILMA MARTINEZ DO [facility] 07/31/2021 04:20:00 PM EDT [facility] ([facility]) Outpatient Attender: Gurdeep COLÓN [facility] 07/23/2021 04:00:00 PM EDT [facility] ([facility]) Outpatient Attender: Damari COLÓN [facility] 06/13/2021 02:00:00 PM EDT [facility] ([facility]) Outpatient Attender: DIANE Briones Prima [facility] 03/26/2021 12:30:00 PM EDT [facility] ([facility]) Outpatient Attender: DAMARI Briones Prim [facility] 10/30/2020 04:40:00 PM EST [facility] ([facility]) Immunizations Vaccine Date Status Description Data Source(s) COVID-19 VACCINE Moderna 01/18/2021 12:00:00 AM EST completed [facility] Vaccine Series Complete: YESThis Data wa s Submitted to [facility] Via [facility]. COVID-19 VACCINE Moderna 12/21/2020 12:00:00 AM EST completed [facility] Vaccine Series Complete: NOThis Data was Submitted to [facility] Via [employer]. FLU VACCINE QUADRIV [id number](4 YEARS AND OLDER)CELL D ERIVED 08/21/2020 12:00:00 AM EDT completed [facility] Medications Medication Brand Name Start Date Product Form Dose Route Admi nistrative Instructions Pharmacy Instructions Status Indications Reaction Description Data Source(s) Amoxicillin 875 MG / Clavulanate 125 MG Oral Tablet Am oxicillin/Clavulanate Potassium 07/31/2021 12:00:00 AM EDT ORAL active [facility] ([facility]) Rosuvastatin calcium 10 MG Oral Tablet [Crestor] Crestor 06/26/2021 12:00:00 AM EDT ORAL active [facility] ([facility]) Amoxicillin 875 MG / Clavulanate 125 MG Oral Tablet Am oxicillin/Clavulanate Potassium 03/26/2021 12:00:00 AM EDT ORAL active [facility] ([facility]) Insurance Providers Payer name Policy type / Coverage type Policy ID Covered constitution party ID Covered constitution party's relationship to esquivel Policy Esquivel Plan Information [facility] [id number] SP [id number] BCBS EMPIRE LAUREL DIV [id number] SP [id number] [facility] [id number] S [id number] BCBS EMPIRE [id number] S [id number] [facility] [id number] S [id number] [employer] EMPIRE [id number] S [id number] ANSI-Commercial [id number] [id number] SP [id number] [employer] [place]/307 [id number] SP [id number] [employer] [place] 302/307 [id number] SP [id number] [employer]STATE [employer]IN[employer] [id number] SP [id number] [place] [id number] 18 [id number] WORKMENS COMP AND NO FAULT OTHER -RECUR [id number] 18 [id number] [employer] [id number] SP [id number] P UNAVAILABLE UNAVAILA BLE OTHER WORKERS COMPENSATION [id number] SP [id number] [employer] [place] PPO 302/307 [id number] SP [id number] CIGNA/MVP/CONN GEN/PREFE P [id number] S [id number] [facility] [id number] SP [id number] BLUE CROSS BLUE SHIELD -O/P [id number] 18 [id number] [facility] O [id number] S [id number] [facility] [id number] SP [id number] Problems, Conditions, and Diagnoses No Information Surgeries/Procedures Procedure Description Date Indications Data Source(s) OFFICE OUTPATIENT VISIT 15 MINUTES 07/31/2021 12:00:00 AM EDT [facility] ([facility]) OFFICE OUTPATIENT VISIT 15 MINUTES 07/23/2021 12:00:00 AM EDT [facility] ([facility]) OFFICE OUTPATIENT NEW 30 MINUTES 06/13/2021 12:00:00 A M EDT [facility] ([facility]) Results ID Date Data Source [id number] 07/31/2021 04:35:00 PM EDT [facility] Name Value Range Interpretation Code Description Data Griselda rce(s) Supporting Document(s) SARS-CoV-2 (COVID 19) NEGATIVE - SARS-CoV-2 (COVID19) [facility] by [facility] a nd reported by [facility]. ID Date Data Source [id number] 07/31/2021 04:35:00 PM EDT [facility] ([facility]) Name Value Range Interpretation Code Description Data Griselda rce(s) Supporting Document(s) Respiratory Panel Laboratory test result [facility] ([facility]) This respiratory PCR panel detects Influ maegan A H1, H3 and 2009 H1 viruses, [...] risk infants. ORGANISM 1: RESPIRATORY SYNCYTIAL VIRUS ID Date Data Source [id number] 06/21/2021 10:08:00 AM EDT [facility] ([facility]) Name Value Range Interpretation Code Description Data Griselda rce(s) Supporting Document(s) Calcidiol [Mass/volume] in Serum or Plasma 31.8 ng/mL 30.0- 100.0 Normal (applies to non-numeric results) [facility] ([facility]) ID Date Data Source [id number] 06/21/2021 10:08:[address] [facility]) Name Value Range Interpretation Code Description Data Griselda rce(s) Supporting Document(s) Hemoglobin A1c 4.9 % Normal (applies to non-numeric r esults) [facility] ([facility]) <content>REFERENCE RANGES:</content><br/ ><content></content>
<content><=5.6% NORMAL</content>
<content>5.7-6.4% SUGGESTS IMPAIRED GLUCOSE METABOLISM/PREDIABETIC</content>
<content>>= 6.5% ABNORMAL</content>
<content></content> Estimated Average Glucose 94 mg/dL 60-110 Normal (applies to non-numeric results) [facility] ([facility]) ID Date Data Source [id number] 06/21/2021 10:08:[address] [facility]) Name Value Range Interpretation Code Description Data Griselda rce(s) Supporting Document(s) Free T4 0.86 ng/dL 0.76-1.46 Normal (applies to non-numeric resul ts) [facility] ([facility]) Thyroid Stimulating Hormone 1.400 uIU/ML 0.358-3.740 Norm al (applies to non- numeric results) [facility] ([facility]) ID Date Data Source [id number] 06/21/2021 10:08:[address] [facility]) Name Value Range Interpretation Code Description Data Griselda rce(s) Supporting Document(s) Cholesterol Level 234 mg/dL Above high normal [facility] ([facility]) Triglycerides Level 87 mg/dL Normal (applies to non-nume moe results) [facility] ([facility]) HDL Cholesterol 55 mg/dL Normal (applies to non-numeric results) [facility] ([facility]) LDL Cholesterol 162 mg/dL Above high normal [facility] ([facility]) Non-HDL-C 179 mg/dL Normal (applies to non-numeric resul ts) [facility] ([facility]) Cholesterol Risk Ratio 4.254 Normal (applies to non-n umeric results) [facility] ([facility]) ID Date Data Source [id number] 06/21/2021 10:08:00 AM EDT [facility] ([facility]) Name Value Range Interpretation Code Description Data Griselda rce(s) Supporting Document(s) Blood Urea Nitrogen 15 mg/dL 7-18 Normal (applies to non-nume moe results) [facility] ([facility]) Glucose, Fasting 85 mg/dL 70-100 Normal (applies to non-numeric results) [facility] ([facility]) Creatinine For GFR 0.71 mg/dL 0.70-1.30 Normal (applies to non -numeric results) [facility] ([facility]) Glomerular Filtration Rate Laboratory test result Normal (applies to non- numeric results) [facility] ([facility]) <content>Units are mL/min/1.73 m2</content>
<content></content>
<content>Chronic Kidney Disease Staging per NKF:</content>
<content></content>
<content>Stage I & II GFR >=60 Normal to Mildly Decreased</content>
<content>Stage III GFR 30- 59 Moderately Decreased</content>
<content>Stage IV GFR 15-29 Severely Decreased</content>
<content>Stage V GFR <15 Very Little GFR Left</content>
<content>ESRD GFR <15 on DOCUMENTATION LEAD</content>
<content></content> Potassium Serum 4.2 meq/L 3.5-5.1 Normal (applies to non-numeric results) [facility] ([facility]) Sodium Level 141 meq/L 136-145 Normal (applies to non-numeric res ults) [facility] ([facility]) Carbon Dioxide Level 28 meq/L 21-32 Normal (applies to non-num miladys results) [facility] ([facility]) Anion Gap 5 meq/L 8-16 Below low normal [facility] ( [facility]) Chloride Level 108 meq/L 98-107 Above high normal [facility] ([facility]) Calcium Level 8.7 mg/dL 8.5-10.1 Normal (applies to non-numeric re sults) [facility] ([facility]) Alt/SGPT 44 U/L 12-78 Normal (applies to non-numeric resul ts) [facility] ([facility]) Ast/Sgot 22 U/L 7-37 Normal (applies to non-numeric resul ts) [facility] ([facility]) Bilirubin,Total 0.8 mg/dL 0.2-1.0 Normal (applies to non-numeric results) [facility] ([facility]) Alkaline Phosphatase 62 U/L 45-117 Normal (applies to non-num miladys results) [facility] ([facility]) Total Protein 7.1 GM/DL 6.4-8.2 Normal (applies to non-numeric re sults) [facility] ([facility]) Albumin/Globulin Ratio 1.4 Normal (applies to non-n umeric results) [facility] ([facility]) Albumin 4.2 GM/DL 3.2-5.2 Normal (applies to non-numeric resul ts) [facility] ([facility]) ID Date Data Source [id number] 06/21/2021 10:08:00 AM EDT [facility] ([facility]) Name Value Range Interpretation Code Description Data Griselda rce(s) Supporting Document(s) White Blood Count 7.1 10 4.0-10.0 Normal (applies to non-numeri c results) [facility] ([facility]) Red Blood Count 4.97 10 4.30-6.10 Normal (applies to non-numeric results) [facility] ([facility]) Hemoglobin 14.6 g/dL 13.5-17.5 Normal (applies to non-numeric resul ts) [facility] ([facility]) Hematocrit 42.2 % 42.0-52.0 Normal (applies to non-numeric resul ts) [facility] ([facility]) Mean Corpuscular Hemoglobin 29.4 pg 27.0-33.0 Norm al (applies to non-numeric results) [facility] [facility]) Mean Corpuscular HGB Conc 34.6 g/dL 32.0-36.5 Normal (applies to non-numeric results) [facility] ([facility]) Mean Corpuscular Volume 84.9 fl 80.0-96.0 Normal ( applies to non-numeric results) [facility] ([facility]) Platelet Count, Automated 164 10 150-450 Normal (applies to non-numeric results) [facility] ([facility]) Red Cell Distribution Width 12.6 % 11.5-14.5 Norm al (applies to non-numeric results) [facility] ([facility]) [place] % 8.2 % 2.0-8.0 Above high normal [facility] ([facility]) Lymph % 30.3 % 24.0-44.0 Normal (applies to non-numeric resul ts) [facility] ([facility]) Neutrophils % 58.0 % 36.0-66.0 Normal (applies to non-numeric re sults) [facility] ([facility]) Eos % 2.1 % 0.0-3.0 Normal (applies to non-numeric resul ts) [facility] ([facility]) Baso % 0.8 % 0.0-1.0 Normal (applies to non-numeric resul ts) [facility] ([facility]) Immature Granulocyte % 0.6 % 0-3.0 Normal (applies to non-n umeric results) [facility] ([facility]) Neutrophils # 4.1 10 1.5-8.5 Normal (applies to non-numeric re sults) [facility] ([facility]) Lymph # 2.1 10 1.5-5.0 Normal (applies to non-numeric resul ts) [facility] ([facility]) Nucleated Red Blood Cell % 0.0 % 0-0 Normal (applies to n on-numeric results) [facility] ([facility]) [place] # 0.6 10 0.0-0.8 Normal (applies to non-numeric resul ts) [facility] ([facility]) Eos # 0.2 10 0.0-0.5 Normal (applies to non-numeric resul ts) [facility] ([facility]) Baso # 0.1 10 0.0-0.2 Normal (applies to non-numeric resul ts) [facility] ([facility]) ID Date Data Source [id number] 03/26/2021 12:00:00 AM EDT [facility] Name Value Range Interpretation Code Description Data Griselda rce(s) Supporting Document(s) SARS-CoV2 Rapid Antigen Negative [facility] This lab was reported by [facility]. ID Date Data Source [id number] 10/30/2020 12:00:00 AM EST [facility] Name Value Range Interpretation Code Description Data Griselda rce(s) Supporting Document(s) [facility] by [facility] and reported by [facility]. Procedure Social History Code Duration Value Status Description Data Source(s ) Smoking 07/23/2021 12:00:00 AM EDT Patient has never smoked co mpleted Patient has never smoked [facility] ([facility]) Smoking 10/30/2020 12:00:00 AM EST Patient has never smoked co mpleted Patient has never smoked [facility] ([facility], [facility]) Vital Signs ID Date Data Source UNK Name Value Range Interpretation Code Description Data Source(s) Body height 69.4 [in_i] 69.4 [in_i] [facility] ([facility]) 5'9.40" Heart rate 94 /min 94 /min [facility] ([facility]) Body temperature 100.5 [degF] 100.5 [degF] MEDE NT ([facility]) Respiratory rate 18 /min 18 /min [facility] ( [facility]) Oxygen saturation in Arterial blood by Pulse oximetry 96 % 96 % [facility] ([facility]) [place] body weight 160 [lb_av] 160 [lb_av] MEDEN T ([facility]) Systolic blood pressure 124 mm[Hg] 124 mm[Hg] M EDENT ([facility]) Diastolic blood pressure 74 mm[Hg] 74 mm[Hg] [facility] ([facility]) Respiratory rate 18 /min 18 /min [facility] ( [facility]) Systolic blood pressure 124 mm[Hg] 124 mm[Hg] M EDENT ([facility]) Oxygen saturation in Arterial blood by Pulse oximetry 97 % 97 % [facility] ([facility]) Diastolic blood pressure 68 mm[Hg] 68 mm[Hg] [facility] ([facility]) Heart rate 69 /min 69 /min [facility] ([facility]) Body height 69.4 [in_i] 69.4 [in_i] [facility] ([facility]) 5'9.40" Body temperature 96.9 [degF] 96.9 [degF] [facility] ([facility]) [place] body weight 160 [lb_av] 160 [lb_av] MEDEN T ([facility]) Body weight 198.00 [lb_av] 198.00 [lb_av] MED[facility] T ([facility]) Body mass index (BMI) [Ratio] 28.9 kg/m2 28.9 k g/m2 [facility] ([facility]) Systolic blood pressure 134 mm[Hg] 134 mm[Hg] M EDENT ([facility]) Diastolic blood pressure 74 mm[Hg] 74 mm[Hg] [facility] ([facility]) Respiratory rate 18 /min 18 /min [facility] ( [facility]) Body height 69.4 [in_i] 69.4 [in_i] [facility] ([facility]) 5'9.40" Body temperature 97.5 [degF] 97.5 [degF] [facility] ([facility]) Heart rate 95 /min 95 /min [facility] ([facility]) Oxygen saturation in Arterial blood by Pulse oximetry 96 % 96 % [facility] ([facility]) [place] body weight 160 [lb_av] 160 [lb_av] MEDEN T ([facility]) Body temperature 98.8 [degF] 98.8 [degF] [facility] Oxygen saturation in Arterial blood by Pulse oximetry 98 % 98 % [facility] ([facility], [facility]) Respiratory rate 17 /min 17 /min [facility] ( [facility], [facility]) Body weight 195.00 [lb_av] 195.00 [lb_av] MEDEN T ([facility], [facility]) Body height 71 [in_i] 71 [in_i] [facility] ([facility], [facility]) 5'11" Body mass index (BMI) [Ratio] 27.2 kg/m2 27.2 k g/m2 [facility] ([facility], [facility]) Systolic blood pressure 129 mm[Hg] 129 mm[Hg] M EDENT ([facility], [facility]) Diastolic blood pressure 93 mm[Hg] 93 mm[Hg] [facility] ([facility], [facility]) Heart rate 75 /min 75 /min [facility] ([facility], [facility]) Respiratory rate 16 /min 16 /min [facility] ( [facility], [facility]) Diastolic blood pressure 77 mm[Hg] 77 mm[Hg] [facility] ([facility], [facility]) Heart rate 73 /min 73 /min [facility] ([facility], [facility]) Oxygen saturation in Arterial blood by Pulse oximetry 98 % 98 % [facility] ([facility], [facility]) Body weight 210.00 [lb_av] 210.00 [lb_av] MEDEN T ([facility], [facility]) Body temperature 98.0 [degF] 98.0 [degF] [facility] ([facility], [facility]) Systolic blood pressure 127 mm[Hg] 127 mm[Hg] M EDENT ([facility], [facility]) Body height 71 [in_i] 71 [in_i] [facility] ([facility], [facility]) 5'11" Body mass index (BMI) [Ratio] 29.3 kg/m2 29.3 k g/m2 [facility] ([facility], [facility])
--- OUTSIDE RECORDS SUMMARY | 2021-09-01 12:28 | CCD | Continuity of Care Document ---
Author Author Stephan REYNOLDS [facility] [place] [address] Phone [phone] Care Team Providers Care Inorganic Chemist Name Role Phone Brooklynn Tovar D.O. AUTM Problems Description No Information Available Social History Type Date Description Comments Sex Unknown ETOH Use Denies alcohol use Tobacco Use Start: Unknown Patient has never smoked Recreational Drug Use Denies Drug Use Exercise Type/Frequency Does not exercise Sun Exposure Does not use sunscreen Seat Belt/Car Seat Always uses seat belt Allergies, Adverse Reactions, Alerts Active Allergies Reaction Severity Comments Date Sulfa Antibiotics Hives 11/17/2018 Honey Bee Venom 06/13/2021 Medications Description No Active Medications Immunizations Description No Information Available Vital Signs Date Vital Result Comment 06/13/2021 1:59pm BP Systolic 134 mmHg BP Diastolic 74 mmHg Height 69.4 inches 5'9.40" Weight 198.00 lb BMI (Body Mass Index) 28.9 kg/m2 Heart Rate 95 /min Respiratory Rate 18 /min Body Temperature 97.5 F O2 % BldC Oximetry 96 % [place] Body Weight 160 lb Results Test Acquired Date Facility Test Result H/L Range Note CBC With Differential 06/21/2021 [facility] [address] [place], [place] [id number] [phone] White Blood Count 7.1 10 Normal 4.0-10.0 [...] 36.0-66.0 Lymph % 30.3 % Normal 24.0-44.0 [place] % 8.2 % High 2.0-8.0 Eos % 2.1 % Normal 0.0-3.0 Baso % 0.8 % Normal 0.0-1.0 Immature Granulocyte % 0.6 % Normal 0-3.0 Nucleated Red Blood Cell % 0.0 % Normal 0-0 Neutrophils # 4.1 10 Normal 1.5-8.5 Lymph # 2.1 10 Normal 1.5-5.0 [place] # 0.6 10 Normal 0.0-0.8 Eos # 0.2 10 Normal 0.0-0.5 Baso # 0.1 10 Normal 0.0-0.2 Comprehensive Metabolic Profil 06/21/[address] [address] [phone] Glucose, Fasting 85 mg/dL Normal 70-100 Blood [...] Albumin/Globulin Ratio 1.4 Normal Lipid Panel 06/21/2021 [facility] [address] [place] [address] [phone] Triglycerides Level 87 mg/dL Normal <150 Cholesterol Level 234 mg/dL High <200 HDL Cholesterol 55 mg/dL Normal >40 LDL Cholesterol 162 mg/dL High <100 Non-HDL-C 179 mg/dL Normal Cholesterol Risk Ratio 4.254 Normal <5 FT4&TSH Panel 06/21/[address] [id number] [phone] Thyroid Stimulating Hormone 1.400 uIU/ML Normal 0. 358-3.740 Free T4 0.86 ng/dL Normal 0.76-1.46 Hemoglobin A1c 06/21/[address] [address] [phone] Hemoglobin A1c 4.9 % Normal 2 Estimated Average Glucose 94 mg/dL Normal 60-110 Laboratory test finding 06/21/[address] [address] [phone] Total 25(Oh) Vitamin D 31.8 NG/ML Normal 30.0-100. 0 1 Units are mL/min/1.73 m2 Chronic Kidney Disease Staging per NKF: Stage I & II GFR >=60 Normal to Mildly Decreased Stage III GFR 30-59 Moderately Decreased Stage IV GFR 15-29 Severely Decreased Stage V GFR <15 Very Little GFR Left ESRD GFR <15 on SECURITY SYSTEM ADMINISTRATOR 2 REFERENCE RANGES: <=5.6% NORMAL 5.7-6.4% SUGGESTS IMPAIRED GLUCOSE META BOLISM/PREDIABETIC >= 6.5% ABNORMAL Procedures Date Code Description Status 06/13/2021 70764 Office/Outpatient New Low MDM 30 -44 Minutes Completed Medical Devices Description No Information Available Encounters Type Date Location Provider Dx Diagnosis Office Visit 06/13/2021 2:00p Family Medicine [facility] KATARZYNA Tran 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, 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 Z13.220 Encounter for screening for lipoid disorders Z13.29 Encounter for screening for oth suspected endocrine disorder Assessments Date Code Description Provider 06/13/2021 D17.20 Benign lipomatous ne oplasm of skin and subcutaneous tissue of unspecified limb KATARZYNA Tran 06/13/2021 F51.5 Nightmare disorder KATARZYNA Dominguez 06/13/2021 Z13.220 Encounter for screening for lipo id disorders KATARZYNA Tran 06/13/2021 Z13.29 Encounter for screen ing for other suspected endocrine disorder KATARZYNA Tran Plan of Treatment Future Appointment(s):* 06/14/2022 11:00 am - KATARZYNA Tran at [facility] Functional Status Description No Information Available Mental Status Description No Information Available Referrals Description No Information Available
--- OUTSIDE RECORDS SUMMARY | 2021-09-01 12:28 | CCD | Continuity of Care Document ---
Author Author Stephan REYNOLDS Organization [place] [address] Phone [phone] Care Team Providers Care Receivables Specialist Name Role Phone Brooklynn Tovar D.O. AUTM [...] F O2 % BldC Oximetry 96 % [place] Body Weight 160 lb Results Description No Information Available Procedures Date Code Description Status 06/13/2021 70794 Office/Outpatient New Low MDM 30 -44 Minutes Completed Medical Devices Description No Information Available Encounters Type Date Location Provider Dx Diagnosis Office Visit 06/13/2021 2:00p Family Medicine [facility] KATARZYNA Tran D17.20 Benign lipomatous neoplasm [...] 06/14/2022 11:00 am - KATARZYNA Tran at [facility] Functional Status Description No Information Available Mental Status Description No Information Available Referrals Description No Information Available
--- OUTSIDE RECORDS SUMMARY | 2021-09-01 12:28 | CCD | Continuity of Care Document ---
Author Author Stephan BARRERA [place] Organization Unknown Address [address] [place] [address] [address] [place] [address] Phone [phone] Care Team Providers Care House Wirer Name Role Phone Brooklynn Tovar D.O. AUTM [phone] Problems Description No Information Available Social History [...] F O2 % BldC Oximetry 97 % [place] Body Weight 160 lb 06/13/2021 1:59pm BP Systolic 134 mmHg BP Diastolic 74 mmHg Height 69.4 inches 5'9.40" Weight 198.00 lb BMI (Body Mass Index) 28.9 kg/m2 Heart Rate 95 /min Respiratory Rate 18 /min Body Temperature 97.5 F O2 % BldC Oximetry 96 % [place] Body Weight 160 lb Results Test Acquired Date Facility Test Result H/L Range Note CBC With Differential 06/21/[address] [address] [phone] White Blood Count 7.1 10 Normal 4.0-10.0 [...] 36.0-66.0 Lymph % 30.3 % Normal 24.0-44.0 [place] % 8.2 % High 2.0-8.0 Eos % 2.1 % Normal 0.0-3.0 Baso % 0.8 % Normal 0.0-1.0 Immature Granulocyte % 0.6 % Normal 0-3.0 Nucleated Red Blood Cell % 0.0 % Normal 0-0 Neutrophils # 4.1 10 Normal 1.5-8.5 Lymph # 2.1 10 Normal 1.5-5.0 [place] # 0.6 10 Normal 0.0-0.8 Eos # 0.2 10 Normal 0.0-0.5 Baso # 0.1 10 Normal 0.0-0.2 Comprehensive Metabolic Profil 06/21/[address] [address] [phone] Glucose, Fasting 85 mg/dL Normal 70-100 Blood [...] Albumin/Globulin Ratio 1.4 Normal Lipid Panel 06/21/[address] [address] [phone] Triglycerides Level 87 mg/dL Normal <150 Cholesterol Level 234 mg/dL High <200 HDL Cholesterol 55 mg/dL Normal >40 LDL Cholesterol 162 mg/dL High <100 Non-HDL-C 179 mg/dL Normal Cholesterol Risk Ratio 4.254 Normal <5 FT4&TSH Panel 06/21/[address] [address] [phone] Thyroid Stimulating Hormone 1.400 uIU/ML Normal 0. 358-3.740 Free T4 0.86 ng/dL Normal 0.76-1.46 Hemoglobin A1c 06/21/[address] [address] [phone] Hemoglobin A1c 4.9 % Normal 2 Estimated Average Glucose 94 mg/dL Normal 60-110 Laboratory test finding 06/21/[address] [address] [phone] Total 25(Oh) Vitamin D 31.8 NG/ML Normal 30.0-100. 0 1 Units are mL/min/1.73 m2 Chronic Kidney Disease Staging per NKF: Stage I & II GFR >=60 Normal to Mildly Decreased Stage III GFR 30-59 Moderately Decreased Stage IV GFR 15-29 Severely Decreased Stage V GFR <15 Very Little GFR Left ESRD GFR <15 on DIRECTOR OF ACQUISITIONS 2 REFERENCE RANGES: <=5.6% NORMAL 5.7-6.4% SUGGESTS IMPAIRED GLUCOSE META BOLISM/PREDIABETIC >= 6.5% ABNORMAL Procedures Date Code Description Status 07/23/2021 96096 Office/Outpatient Established w MDM 20-29 Min Completed 06/13/2021 60235 Office/Outpatient New Low MDM 30 -44 Minutes Completed Medical Devices Description No Information Available Encounters Type Date Location Provider Dx Diagnosis Office Visit 07/23/2021 4:00p [facility] KATARZYNA Salas J06.9 Acute upper respiratory infe ction, unspecified Office Visit 06/13/2021 2:00p [facility] KATARZYNA Tran D17.20 Benign lipomatous neoplasm [...] 09/21/2021 9:00 am - KATARZYNA Tran at [facility] * 06/14/2022 11:00 am - KATARZYNA Tran at [facility] Functional Status Description No Information Available Mental Status Description No Information Available Referrals Description No Information Available
--- OUTSIDE RECORDS SUMMARY | 2021-09-01 12:28 | CCD | Continuity of Care Document ---
Author Author Stephan REYNOLDS Organization [place] [address] Phone [phone] Care Team Providers Care Attacher Name Role Phone Brooklynn Tovar D.O. AUTM [...] F O2 % BldC Oximetry 96 % [place] Body Weight 160 lb Results Description No Information Available Procedures Date Code Description Status 06/13/2021 47683 Office/Outpatient New Low MDM 30 -44 Minutes Completed Medical Devices Description No Information Available Encounters Type Date Location Provider Dx Diagnosis Office Visit 06/13/2021 2:00p Family Medicine [facility] KATARZYNA Tran D17.20 Benign lipomatous neoplasm [...] am - KATARZYNA Tran at [facility] Functional Status Description No Information Available Mental Status Description No Information Available Referrals Description No Information Available
--- OUTSIDE RECORDS SUMMARY | 2021-09-01 12:28 | CCD | Continuity of Care Document ---
Author Author Stephan REYNOLDS [place] [address] Phone [phone] Care Team Providers Care Search Specialist Name Role Phone Brooklynn Tovar D.O. [...] F O2 % BldC Oximetry 96 % [place] Body Weight 160 lb Results Description No Information Available Procedures Date Code Description Status 06/13/2021 66895 Office/Outpatient New Low MDM 30 -44 Minutes Completed Medical Devices Description No Information Available Encounters Type Date Location Provider Dx Diagnosis Office Visit 06/13/2021 2:00p [facility] KATARZYNA Tran D17.20 Benign lipomatous neoplasm [...] 06/14/2022 11:00 am - KATARZYNA Tran at [facility] Functional Status Description No Information Available Mental Status Description No Information Available Referrals Description No Information Available
--- OUTSIDE RECORDS SUMMARY | 2021-09-01 12:28 | CCD | Continuity of Care Document ---
Author Author Stephan BARRERA [place] Organization Unknown Address [address] [place] [address] [address] [place] [address] Phone [phone] Care Team Providers Care Sql Ssrs Ssis Developer Name Role Phone Brooklynn Tovar D.O. AUTM [phone] Problems Description No Information Available Social History [...] F O2 % BldC Oximetry 97 % [place] Body Weight 160 lb 06/13/2021 1:59pm BP Systolic 134 mmHg BP Diastolic 74 mmHg Height 69.4 inches 5'9.40" Weight 198.00 lb BMI (Body Mass Index) 28.9 kg/m2 Heart Rate 95 /min Respiratory Rate 18 /min Body Temperature 97.5 F O2 % BldC Oximetry 96 % [place] Body Weight 160 lb Results Test Acquired Date Facility Test Result H/L Range Note CBC With Differential 06/21/[address] [address] [phone] White Blood Count 7.1 10 Normal 4.0-10.0 [...] 36.0-66.0 Lymph % 30.3 % Normal 24.0-44.0 [place] % 8.2 % High 2.0-8.0 Eos % 2.1 % Normal 0.0-3.0 Baso % 0.8 % Normal 0.0-1.0 Immature Granulocyte % 0.6 % Normal 0-3.0 Nucleated Red Blood Cell % 0.0 % Normal 0-0 Neutrophils # 4.1 10 Normal 1.5-8.5 Lymph # 2.1 10 Normal 1.5-5.0 [place] # 0.6 10 Normal 0.0-0.8 Eos # 0.2 10 Normal 0.0-0.5 Baso # 0.1 10 Normal 0.0-0.2 Comprehensive Metabolic Profil 06/21/[address] [address] [phone] Glucose, Fasting 85 mg/dL Normal 70-100 Blood [...] Albumin/Globulin Ratio 1.4 Normal Lipid Panel 06/21/[address] [address] [phone] Triglycerides Level 87 mg/dL Normal <150 Cholesterol Level 234 mg/dL High <200 HDL Cholesterol 55 mg/dL Normal >40 LDL Cholesterol 162 mg/dL High <100 Non-HDL-C 179 mg/dL Normal Cholesterol Risk Ratio 4.254 Normal <5 FT4&TSH Panel 06/21/[address] [address] [phone] Thyroid Stimulating Hormone 1.400 uIU/ML Normal 0. 358-3.740 Free T4 0.86 ng/dL Normal 0.76-1.46 Hemoglobin A1c 06/21/[address] [address] [phone] Hemoglobin A1c 4.9 % Normal 2 Estimated Average Glucose 94 mg/dL Normal 60-110 Laboratory test finding 06/21/[address] [address] [phone] Total 25(Oh) Vitamin D 31.8 NG/ML Normal 30.0-100. 0 1 Units are mL/min/1.73 m2 Chronic Kidney Disease Staging per NKF: Stage I & II GFR >=60 Normal to Mildly Decreased Stage III GFR 30-59 Moderately Decreased Stage IV GFR 15-29 Severely Decreased Stage V GFR <15 Very Little GFR Left ESRD GFR <15 on REMOTE BROADCAST TECHNICIAN 2 REFERENCE RANGES: <=5.6% NORMAL 5.7-6.4% SUGGESTS IMPAIRED GLUCOSE META BOLISM/PREDIABETIC >= 6.5% ABNORMAL Procedures Date Code Description Status 07/23/2021 73206 Office/Outpatient Established w MDM 20-29 Min Completed 06/13/2021 75883 Office/Outpatient New Low MDM 30 -44 Minutes Completed Medical Devices Description No Information Available Encounters Type Date Location Provider Dx Diagnosis Office Visit 07/23/2021 4:00p [facility] KATARZYNA Salas J06.9 Acute upper respiratory infe ction, unspecified Office Visit 06/13/2021 2:00p [facility] KATARZYNA Tran D17.20 Benign lipomatous neoplasm [...]
[2021-09-01 12:30] VITALS: BP 137/98
[2021-09-01] MEDS ORDERED: ROSU10TA6 PO (12:34)
[2021-09-01] MEDS ORDERED: DERMABOND TOPICAL SKIN ADHESIVE TOP ONE (12:40)
[2021-09-01] MEDS ORDERED: BOOSTRIX/ADACEL VACCINE (DIPHTH/PERTUSS/ACELL/TETANUS) 0.5ML SYR IM ONE (12:45)
--- OUTSIDE RECORDS SUMMARY | 2021-09-01 13:21 | CCD ---
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 If you continue you may have access to information: Regarding HIV / AIDS; Provided by facilities licensed or operated by the [facility] Office of Mental Health; or Provided by the [facility] Office for People With Developmental Disabilities. If such information is present, then the following [facility] mandated warning applies: This information has [...] law may result in a fine or long-term sentence or both. A general authorization for the release of medical or other information is NOT sufficient authorization for further disc losure. Encounters Encounter Providers Location Date Indications Data Source(s ) Outpatient Attender: DILMA MARTINEZ DO [facility] 07/31/2021 04:20:00 PM EDT [facility] ([facility]) Outpatient Attender: Gurdeep COLÓN [facility] 07/23/2021 04:00:00 PM EDT [facility] ([facility]) Outpatient Attender: Damari COLÓN [facility] 06/13/2021 02:00:00 PM EDT [facility] ([facility]) Outpatient Attender: DIANE Briones Prima ry 03/26/2021 12:30:00 PM EDT [facility] ([facility]) Outpatient Attender: DAMARI Briones Prim jasper 10/30/2020 04:40:00 PM EST [facility] ([facility]) Immunizations Vaccine Date Status Description Data Source(s) COVID-19 VACCINE Moderna 01/18/2021 12:00:00 AM EST completed [facility] Vaccine Series Complete: YESThis Data wa s Submitted to [facility] Via [employer]. COVID-19 VACCINE Moderna 12/21/2020 12:00:00 AM EST completed [facility] Vaccine Series Complete: NOThis Data was Submitted to [facility] Via [employer]. FLU VACCINE QUADRIV [id number](4 YEARS AND OLDER)CELL D ERIVED 08/21/2020 12:00:00 AM EDT completed [facility] Medications Medication Brand Name Start Date Product Form Dose Route Admi nistrative Instructions Pharmacy Instructions Status Indications Reaction Description Data Source(s) Amoxicillin 875 MG / Clavulanate 125 MG Oral Tablet Am oxicillin/Clavulanate Potassium 07/31/2021 12:00:00 AM EDT ORAL active [facility] ([facility]) Rosuvastatin calcium 10 MG Oral Tablet [Crestor] Crestor 06/26/2021 12:00:00 AM EDT ORAL active [facility] ([facility]) Amoxicillin 875 MG / Clavulanate 125 MG Oral Tablet Am oxicillin/Clavulanate Potassium 03/26/2021 12:00:00 AM EDT ORAL active [facility] ([facility]) Insurance Providers Payer name Policy type / Coverage type Policy ID Covered alliance party ID Covered alliance party's relationship to esquivel Policy Esquivel Plan Information [facility] [id number] SP [id number] BCBS EMPIRE LAUREL DIV [id number] SP [id number] [facility] [id number] S [id number] BCBS EMPIRE [id number] S [id number] [facility] [id number] S [id number] BCBS EMPIRE [id number] S [id number] ANSI-Commercial [id number] [place]/307 [id number] SP [id number] [place] P[place]/307 [id number] SP [id number] [place] [place] 302/307 [id number] SP [id number] [employer]IN[employer] [id number] SP [id number] [place] [id number] [phone] WORKMENS COMP AND NO FAULT OTHER -RECUR [id number] 18 [id number] [employer] [id number] SP [id number] P UNAVAILABLE UNAVAILA BLE OTHER WORKERS COMPENSATION [id number] SP [id number] [employer] [place] PPO 302/307 [id number] SP [id number] CIGNA/MVP/CONN GEN/PREFE P [id number] S [id number] [facility] [id number] SP [id number] BLUE CROSS BLUE SHIELD -O/P [id number] [facility] O [id number] S [id number] [facility] [id number] SP [id number] Problems, Conditions, and Diagnoses No Information Surgeries/Procedures Procedure Description Date Indications Data Source(s) OFFICE OUTPATIENT VISIT 15 MINUTES 07/31/2021 12:00:00 AM EDT [facility] ([facility]) OFFICE OUTPATIENT VISIT 15 MINUTES 07/23/2021 12:00:00 AM EDT [facility] ([facility]) OFFICE OUTPATIENT NEW 30 MINUTES 06/13/2021 12:00:00 A M EDT [facility] ([facility]) Results ID Date Data Source [id number] 07/31/2021 04:35:00 PM EDT [facility] Name Value Range Interpretation Code Description Data Griselda rce(s) Supporting Document(s) SARS-CoV-2 (COVID 19) NEGATIVE - SARS-CoV-2 (COVID19) [facility] This lab was ordered by [facility] a nd reported by [facility]. ID Date Data Source [id number] 07/31/2021 04:35:00 PM EDT [facility] Name Value Range Interpretation Code Description Data Griselda rce(s) Supporting Document(s) Respiratory Panel Laboratory test result [facility]) This respiratory PCR panel detects Influ [...] RESPIRATORY SYNCYTIAL VIRUS ID Date Data Source [id number] 06/21/2021 10:08:00 AM EDT [facility] Name Value Range Interpretation Code Description Data Griselda rce(s) Supporting Document(s) Calcidiol [Mass/volume] in Serum or Plasma 31.8 ng/mL 30.0- 100.0 Normal (applies to non-numeric results) [facility] ([facility]) ID Date Data Source [id number] 06/21/2021 10:08:00 AM EDT [facility]) Name Value Range Interpretation Code Description Data Griselda rce(s) Supporting Document(s) Hemoglobin A1c 4.9 % Normal (applies to non-numeric r esults) [facility] ([facility]) <content>REFERENCE RANGES:</content><br/ ><content></content>
<content><=5.6% NORMAL</content>
<content>5.7-6.4% SUGGESTS IMPAIRED GLUCOSE METABOLISM/PREDIABETIC</content>
<content>>= 6.5% ABNORMAL</content>
<content></content> Estimated Average Glucose 94 mg/dL 60-110 Normal (applies to non-numeric results) [facility] ([facility]) ID Date Data Source [id number] 06/21/2021 10:08:00 AM EDT [facility]) Name Value Range Interpretation Code Description Data Griselda rce(s) Supporting Document(s) Free T4 0.86 ng/dL 0.76-1.46 Normal (applies to non-numeric resul ts) [facility] ([facility]) Thyroid Stimulating Hormone 1.400 uIU/ML 0.358-3.740 Norm al (applies to non- numeric results) [facility] ([facility]) ID Date Data Source [id number] 06/21/2021 10:08:00 AM EDT [facility]) Name Value Range Interpretation Code Description Data Griselda rce(s) Supporting Document(s) Cholesterol Level 234 mg/dL Above high normal [facility] ([facility]) Triglycerides Level 87 mg/dL Normal (applies to non-nume moe results) [facility] ([facility]) HDL Cholesterol 55 mg/dL Normal (applies to non-numeric results) [facility] ([facility]) LDL Cholesterol 162 mg/dL Above high normal [facility] ([facility]) Non-HDL-C 179 mg/dL Normal (applies to non-numeric resul ts) [facility] Cholesterol Risk Ratio 4.254 Normal (applies to non-n umeric results) [facility] ([facility]) ID Date Data Source [id number] 06/21/2021 10:08:00 AM EDT [facility] ([facility]) Name Value Range Interpretation Code Description Data Griselda rce(s) Supporting Document(s) Blood Urea Nitrogen 15 mg/dL 7-18 Normal (applies to non-nume moe results) [facility]) Glucose, Fasting 85 mg/dL 70-100 Normal (applies to non-numeric results) [facility] ([facility]) Creatinine For GFR 0.71 mg/dL 0.70-1.30 Normal (applies to non -numeric results) [facility] ([facility]) Glomerular Filtration Rate Laboratory test result Normal (applies to non- numeric results) [facility] ([facility]) <content>Units are mL/min/1.73 m2</content>
<content></content>
<content>Chronic Kidney Disease Staging per NKF:</content>
<content></content>
<content>Stage I & II GFR >=60 Normal to Mildly Decreased</content>
<content>Stage III GFR 30- 59 Moderately Decreased</content>
<content>Stage IV GFR 15-29 Severely Decreased</content>
<content>Stage V GFR <15 Very Little GFR Left</content>
<content>ESRD GFR <15 on [place] [employer]</content>
<content></content> Potassium Serum 4.2 meq/L 3.5-5.1 Normal (applies to non-numeric results) [facility] ([facility]) Sodium Level 141 meq/L 136-145 Normal (applies to non-numeric res ults) [facility] ([facility]) Carbon Dioxide Level 28 meq/L 21-32 Normal (applies to non-num miladys results) [facility] ([facility]) Anion Gap 5 meq/L 8-16 Below low normal [facility] ( [facility]) Chloride Level 108 meq/L 98-107 Above high normal [facility] ([facility]) Calcium Level 8.7 mg/dL 8.5-10.1 Normal (applies to non-numeric re sults) [facility] Alt/SGPT 44 U/L 12-78 Normal (applies to non-numeric resul ts) [facility]) Ast/Sgot 22 U/L 7-37 Normal (applies to non-numeric resul ts) [facility]) Bilirubin,Total 0.8 mg/dL 0.2-1.0 Normal (applies to non-numeric results) [facility] ([facility]) Alkaline Phosphatase 62 U/L 45-117 Normal (applies to non-num miladys results) [facility] ([facility]) Total Protein 7.1 GM/DL 6.4-8.2 Normal (applies to non-numeric re sults) [facility] ([facility]) Albumin/Globulin Ratio 1.4 Normal (applies to non-n umeric results) [facility] ([facility]) Albumin 4.2 GM/DL 3.2-5.2 Normal (applies to non-numeric resul ts) [facility]) ID Date Data Source [id number] 06/21/2021 10:08:00 AM EDT [facility]) Name Value Range Interpretation Code Description Data Griselda rce(s) Supporting Document(s) White Blood Count 7.1 10 4.0-10.0 Normal (applies to non-numeri c results) [facility]) Red Blood Count 4.97 10 4.30-6.10 Normal (applies to non-numeric results) [facility] ([facility]) Hemoglobin 14.6 g/dL 13.5-17.5 Normal (applies to non-numeric resul ts) [facility]) Hematocrit 42.2 % 42.0-52.0 Normal (applies to non-numeric resul ts) [facility]) Mean Corpuscular Hemoglobin 29.4 pg 27.0-33.0 Norm al (applies to non-numeric results) [facility] ([facility]) Mean Corpuscular HGB Conc 34.6 g/dL 32.0-36.5 Normal (applies to non-numeric results) [facility] ([facility]) Mean Corpuscular Volume 84.9 fl 80.0-96.0 Normal ( applies to non-numeric results) [facility] ([facility]) Platelet Count, Automated 164 10 150-450 Normal (applies to non-numeric results) [facility] ([facility]) Red Cell Distribution Width 12.6 % 11.5-14.5 Norm al (applies to non-numeric results) [facility] ([facility]) [place] % 8.2 % 2.0-8.0 Above high normal [facility] ([facility]) Lymph % 30.3 % 24.0-44.0 Normal (applies to non-numeric resul ts) [facility] ([facility]) Neutrophils % 58.0 % 36.0-66.0 Normal (applies to non-numeric re sults) [facility] ([facility]) Eos % 2.1 % 0.0-3.0 Normal (applies to non-numeric resul ts) [facility] ([facility]) Baso % 0.8 % 0.0-1.0 Normal (applies to non-numeric resul ts) [facility] ([facility]) Immature Granulocyte % 0.6 % 0-3.0 Normal (applies to non-n umeric results) [facility] ([facility]) Neutrophils # 4.1 10 1.5-8.5 Normal (applies to non-numeric re sults) [facility] ([facility]) Lymph # 2.1 10 1.5-5.0 Normal (applies to non-numeric resul ts) [facility] ([facility]) Nucleated Red Blood Cell % 0.0 % 0-0 Normal (applies to n on-numeric results) [facility] ([facility]) [place] # 0.6 10 0.0-0.8 Normal (applies to non-numeric resul ts) [facility] ([facility]) Eos # 0.2 10 0.0-0.5 Normal (applies to non-numeric resul ts) [facility] ([facility]) Baso # 0.1 10 0.0-0.2 Normal (applies to non-numeric resul ts) [facility] ([facility]) ID Date Data Source [id number] 03/26/2021 12:00:00 AM EDT [facility] Name Value Range Interpretation Code Description Data Griselda rce(s) Supporting Document(s) SARS-CoV2 Rapid Antigen Negative [facility] This lab was reported by [facility]. ID Date Data Source [id number] 10/30/2020 12:00:00 AM EST [facility] Name Value Range Interpretation Code Description Data Griselda rce(s) Supporting Document(s) SARS coronavirus 2 Ag [facility] This lab was ordered by [facility] and reported by [facility]. Procedure Social History Code Duration Value Status Description Data Source(s ) Smoking 07/23/2021 12:00:00 AM EDT Patient has never smoked co mpleted Patient has never smoked [facility] ([facility]) Smoking 10/30/2020 12:00:00 AM EST Patient has never smoked co mpleted Patient has never smoked [facility] ([facility]) Vital Signs ID Date Data Source UNK Name Value Range Interpretation Code Description Data Source(s) Body height 69.4 [in_i] 69.4 [in_i] [facility] ([facility]) 5'9.40" Heart rate 94 /min 94 /min [facility] ([facility]) Respiratory rate 18 /min 18 /min [facility] ( [facility]) Body temperature 100.5 [degF] 100.5 [degF] MED[facility] NT ([facility]) Oxygen saturation in Arterial blood by Pulse oximetry 96 % 96 % [facility] ([facility]) [place] body weight 160 [lb_av] 160 [lb_av] [facility] T ([facility]) Systolic blood pressure 124 mm[Hg] 124 mm[Hg] [facility] ([facility]) Diastolic blood pressure 74 mm[Hg] 74 mm[Hg] [facility] ([facility]) Systolic blood pressure 124 mm[Hg] 124 mm[Hg] [facility] ([facility]) Respiratory rate 18 /min 18 /min [facility] ( [facility]) Heart rate 69 /min 69 /min [facility] ([facility]) Oxygen saturation in Arterial blood by Pulse oximetry 97 % 97 % [facility] ([facility]) Diastolic blood pressure 68 mm[Hg] 68 mm[Hg] [facility] ([facility]) Body height 69.4 [in_i] 69.4 [in_i] [facility] ([facility]) 5'9.40" Body temperature 96.9 [degF] 96.9 [degF] [facility] ([facility]) [place] body weight 160 [lb_av] 160 [lb_av] [facility] T ([facility]) Body weight 198.00 [lb_av] 198.00 [lb_av] [facility] T ([facility]) Body mass index (BMI) [Ratio] 28.9 kg/m2 28.9 k g/m2 [facility] ([facility]) Systolic blood pressure 134 mm[Hg] 134 mm[Hg] [facility] ([facility]) Diastolic blood pressure 74 mm[Hg] 74 mm[Hg] [facility] ([facility]) Body height 69.4 [in_i] 69.4 [in_i] [facility] ([facility]) 5'9.40" Respiratory rate 18 /min 18 /min [facility] ( [facility]) Body temperature 97.5 [degF] 97.5 [degF] [facility] ([facility]) Heart rate 95 /min 95 /min [facility] ([facility]) Oxygen saturation in Arterial blood by Pulse oximetry 96 % 96 % [facility] ([facility]) [place] body weight 160 [lb_av] 160 [lb_av] [facility] T ([facility]) Respiratory rate 17 /min 17 /min [facility] ( [facility]) Body weight 195.00 [lb_av] 195.00 [lb_av] [facility] T ([facility], [facility]) Body temperature 98.8 [degF] 98.8 [degF] [facility] ([facility], [facility]) Oxygen saturation in Arterial blood by Pulse oximetry 98 % 98 % [facility] ([facility], [facility]) Body height 71 [in_i] 71 [in_i] [facility] ([facility], [facility]) 5'11" Body mass index (BMI) [Ratio] 27.2 kg/m2 27.2 k g/m2 [facility] ([facility], [facility]) Systolic blood pressure 129 mm[Hg] 129 mm[Hg] M [facility] ([facility], [facility]) Diastolic blood pressure 93 mm[Hg] 93 mm[Hg] [facility] ([facility], [facility]) Heart rate 75 /min 75 /min [facility] ([facility], [facility]) Systolic blood pressure 127 mm[Hg] 127 mm[Hg] M ED[facility] ([facility], [facility]) Diastolic blood pressure 77 mm[Hg] 77 mm[Hg] [facility] ([facility], [facility]) Heart rate 73 /min 73 /min [facility] ([facility], [facility]) Body weight 210.00 [lb_av] 210.00 [lb_av] MED[facility] T ([facility], [facility]) Respiratory rate 16 /min 16 /min [facility] ( [facility], [facility]) Oxygen saturation in Arterial blood by Pulse oximetry 98 % 98 % [facility] ([facility], [facility]) Body temperature 98.0 [degF] 98.0 [degF] [facility] ([facility], [facility]) Body height 71 [in_i] 71 [in_i] [facility] ([facility], [facility]) 5'11" Body mass index (BMI) [Ratio] 29.3 kg/m2 29.3 k g/m2 [facility] ([facility], [facility])
== END 2021-09-01 13:23 | disposition home or self-care (01) ==
LOC: M ED 12:22
DX: S51.811A Laceration without foreign body of right forearm, initial encounter (principal); W26.8XXA Contact with other sharp object(s), not elsewhere classified, initial encounter; Y92.9 Unspecified place or not applicable; Y93.9 Activity, unspecified; Y99.0 Civilian activity done for income or pay; E78.5 Hyperlipidemia, unspecified; Z88.2 Allergy status to sulfonamides; Z91.030 Bee allergy status

== ENCOUNTER → 2025-07-06 | Outpatient (REF) | payer BC ==
[~2025-07-06] MED LIST changes: +ROSU10TA61 PO
== END ==
LOC: M SMT 13:33
PROVIDERS: ATTEND Urology
DX: Z30.2 Encounter for sterilization (principal)

== ENCOUNTER → 2025-09-13 | Outpatient (REF) | payer BC ==
[~2025-09-13] MED LIST changes: -ROSU10TA61 PO; +ROSU10TA90 PO
[2025-09-13 12:01] LABS: SEMEN APPEARANCE OPAQUE (OPAQUE); SEMEN VISCOSITY LIQUID (LIQUID); SEMEN VOLUME 1.9 ml (2.0-5.0); WBC CONCENTRATION <=1 M/ml (<=1 M/ml)
== END ==
LOC: M SMT 11:27
PROVIDERS: ATTEND Urology
DX: Z30.8 Encounter for other contraceptive management (principal)